=== PATIENT | male | born 1955 | race Caucasian/White ===

== ENCOUNTER 2016-12-30 08:05 | Outpatient (CLI) | payer BC | END 2016-12-30 08:06 | disposition home or self-care (01) | DX: Z85.46 Personal history of malignant neoplasm of prostate (principal); Z79.899 Other long term (current) drug therapy ==

== ENCOUNTER 2017-01-05 08:50 | Outpatient (CLI) | payer BC | END 2017-01-05 08:51 | disposition home or self-care (01) | DX: E29.1 Testicular hypofunction (principal) ==

== ENCOUNTER 2017-07-09 12:54 | Outpatient (CLI) | payer BC ==
[2017-07-09 19:23] LABS: FOLLICLE STIMULATING HORMONE 8.81 mIU/mL
[2017-07-09 19:24] LABS: LUTEINIZING HORMONE 7.56 mIU/mL
[2017-07-14 14:31] LABS: TEST RESULT REPORT
== END 2017-07-09 12:55 | disposition home or self-care (01) ==
LOC: LAB.F 12:54
PROVIDERS: ATTEND Internal Medicine
DX: C61 Malignant neoplasm of prostate (principal)
CPT/HCPCS: 36415; 81599; 83001; 83002; 84153; 84270; 84402; 84403

== ENCOUNTER 2018-01-26 11:23 | Outpatient (CLI) | payer BC ==
[2018-01-26 13:05] LABS: BASOPHILS % (AUTO) 0.8 %; EOSINOPHILS # (AUTO) 0.1 10^3/uL (0.0-0.7); EOSINOPHILS % (AUTO) 2.4 %; HGB - HEMOGLOBIN 14.9 g/dL (14.0-18.0); LYMPHOCYTES # (AUTO) 1.8 10^3/uL (1.5-3.5); LYMPHOCYTES % (AUTO) 34.6 %; MEAN CORPUSCULAR HEMOGLOBIN 32.8 pg (27.0-31.0); MEAN CORPUSCULAR HGB CONC 34.8 g/dL (32.0-36.0); MEAN CORPUSCULAR VOLUME 94.2 fL (80.0-94.0); MEAN PLATELET VOLUME 7.5 fL (7.4-11.4); MONOCYTES # (AUTO) 0.4 10^3/uL (0.0-1.0); MONOCYTES % (AUTO) 6.8 %; NEUTROPHILS # (AUTO) 2.9 10^3/uL (1.5-6.6); NEUTROPHILS % (AUTO) 55.4 %; PLT - PLATELET COUNT 215 10^3/uL (130-450); RED BLOOD COUNT 4.55 10^6/uL (4.70-6.10); RED CELL DISTRIBUTION WIDTH 12.5 % (12.0-15.0); WHITE BLOOD COUNT 5.3 x10^3/uL (4.8-10.8)
[2018-01-26 13:25] LABS: ALBUMIN 4.7 g/dL (3.2-5.5); ALBUMIN/GLOBULIN RATIO 1.9 (1.0-2.2); BILIRUBIN,TOTAL 0.8 mg/dL (0.2-1.0); CALCIUM 9.1 mg/dL (8.5-10.3); CREATININE 0.9 mg/dL (0.6-1.2); TOTAL PROTEIN 7.2 g/dL (6.7-8.2)
== END 2018-01-26 11:24 | disposition home or self-care (01) ==
LOC: LAB.R 11:23
PROVIDERS: ATTEND Internal Medicine
DX: C61 Malignant neoplasm of prostate (principal)
CPT/HCPCS: 80053; 84153; 84443; 85025

== ENCOUNTER 2018-02-11 08:00 | Outpatient (CLI) | payer BC | END 2018-02-11 08:01 | disposition home or self-care (01) | LOC: LAB.R 08:00 | PROVIDERS: ATTEND Internal Medicine | DX: C61 Malignant neoplasm of prostate (principal) | CPT/HCPCS: 81599; 84153; 84402; 84403 ==

== ENCOUNTER 2018-07-21 11:01 | Outpatient (CLI) | payer BC | END 2018-07-21 11:02 | disposition home or self-care (01) | LOC: LAB.F 11:01 | PROVIDERS: ATTEND Internal Medicine | DX: C61 Malignant neoplasm of prostate (principal) | CPT/HCPCS: 36415; 84153 ==

== ENCOUNTER 2018-08-31 09:33 | Outpatient (CLI) | payer MEDICARE, OTHER ==
[2018-08-31] MEDS ORDERED: IOVERSOL 320 100 ML VIAL IVP ONE (13:20)
[2018-08-31] MEDS ORDERED: IOVERSOL 320 50 ML VIAL PO ONE (13:20)
--- NOTE | 2018-09-01 08:21 | Nuclear Medicine Report ---
Reason: PROSTATE CA Procedure Date: 08/31/2018 Accession Number: [id number] / [id number] Procedure: NM - Bone Whole Body CPT Code: FULL RESULT: EXAM: BONE SCAN EXAM DATE: 08/31/2018 01:57 PM. CLINICAL HISTORY: PROSTATE CA. COMPARISON: ABDOMEN/PELVIS W08/31/2018 11:44 AM CHEST W08/31/2018 11:44 AM. TECHNIQUE: Following the intravenous administration of 31.6 mCi of technetium 99m MDP and an appropriate delay, a whole-body scan was performed in anterior and posterior projections. Site-specific spot views of the region of interest were obtained in various projections. FINDINGS: Normal renal radiotracer uptake and bladder activity. Normal soft tissue activity. Overall normal osseous uptake. Mild thoracolumbar scoliosis. Mild multilevel thoracic and mid to lower lumbar spinal uptake likely degenerative. Mild uptake at the acromial clavicular joints, bilateral knees and feet, likely degenerative. No suspicious focal uptake. IMPRESSION: 1. No convincing scintigraphic evidence of osseous metastasis. RADIA
--- NOTE | 2018-09-01 09:20 | CT Report ---
Reason: PROSTATE CANCER Procedure Date: 08/31/2018 Accession Number: [id number] / [id number] Procedure: CT - Abdomen/Pelvis W/ CPT Code: FULL RESULT: EXAM: CT CHEST, ABDOMEN AND PELVIS EXAM DATE: 08/31/2018 12:00 PM. CLINICAL HISTORY: Prostate cancer. COMPARISONS: CT pelvis 02/22/2014, CT abdomen and pelvis 09/15/2013. TECHNIQUE: Routine helical CT imaging was performed through the chest, abdomen, and pelvis. IV contrast: Isovue-320 90 mL. Enteric contrast: No. Reconstructions: Coronal and sagittal. In accordance with CT protocol optimization, one or more of the following dose reduction techniques were utilized for this exam: automated exposure control, adjustment of mA and/or KV based on patient size, or use of iterative reconstructive technique. FINDINGS: Lungs/Pleura: Normal. No nodules, bronchial thickening, consolidation, or edema. Pulmonary vasculature is normal. No effusions or pneumothorax. Mediastinum: Normal. No adenopathy or masses. Liver: Normal. Gallbladder/Bile Ducts: Unremarkable. Spleen: Normal. Pancreas: Normal. Adrenal Glands: Normal. Kidneys: Normal. No masses or hydronephrosis. Peritoneal Cavity/Bowel: Normal. No free fluid, free air or abdominal adenopathy. No masses or acute inflammatory process. The appendix is well visualized and normal. Pelvic Organs: Fiducial markers are seen in the prostate which exerts mass effect/nodularity of the bladder base that is suspicious. There is a suspicious left external iliac lymph node cluster which measures 3.2 x 1.9 cm (image 74 series 3), as well as a suspicious 1.3 x 1.1 cm node in the left internal iliac chain, image 79 series 3. These findings appear stable compared to 2013. Vasculature: No aneurysms or other significant abnormality. Bones: No aggressive osseous lesions are identified, recommend correlation to bone scan. Other: None. IMPRESSION: Stable disease with persistent pelvic lymphadenopathy and questionable bladder invasion by CT. RADIA
--- NOTE | 2018-09-01 09:20 | CT Report ---
Reason: PROSTATE CANCER Procedure Date: 08/31/2018 Accession Number: [id number] / [id number] Procedure: CT - Chest W/ CPT Code: FULL RESULT: EXAM: CT CHEST, ABDOMEN AND PELVIS EXAM DATE: 08/31/2018 12:00 PM. CLINICAL HISTORY: Prostate cancer. COMPARISONS: CT pelvis 02/22/2014, CT abdomen and pelvis 09/15/2013. TECHNIQUE: Routine helical CT imaging was performed through the chest, abdomen, and pelvis. IV contrast: Isovue-320 90 mL. Enteric contrast: No. Reconstructions: Coronal and sagittal. In accordance with CT protocol optimization, one or more of the following dose reduction techniques were utilized for this exam: automated exposure control, adjustment of mA and/or KV based on patient size, or use of iterative reconstructive technique. FINDINGS: Lungs/Pleura: Normal. No nodules, bronchial thickening, consolidation, or edema. Pulmonary vasculature is normal. No effusions or pneumothorax. Mediastinum: Normal. No adenopathy or masses. Liver: Normal. Gallbladder/Bile Ducts: Unremarkable. Spleen: Normal. Pancreas: Normal. Adrenal Glands: Normal. Kidneys: Normal. No masses or hydronephrosis. Peritoneal Cavity/Bowel: Normal. No free fluid, free air or abdominal adenopathy. No masses or acute inflammatory process. The appendix is well visualized and normal. Pelvic Organs: Fiducial markers are seen in the prostate which exerts mass effect/nodularity of the bladder base that is suspicious. There is a suspicious left external iliac lymph node cluster which measures 3.2 x 1.9 cm (image 74 series 3), as well as a suspicious 1.3 x 1.1 cm node in the left internal iliac chain, image 79 series 3. These findings appear stable compared to 2013. Vasculature: No aneurysms or other significant abnormality. Bones: No aggressive osseous lesions are identified, recommend correlation to bone scan. Other: None. IMPRESSION: Stable disease with persistent pelvic lymphadenopathy and questionable bladder invasion by CT. RADIA
== END 2018-08-31 09:34 | disposition home or self-care (01) ==
LOC: DI 09:33
PROVIDERS: ATTEND Internal Medicine Hematology & Oncology
DX: C61 Malignant neoplasm of prostate (principal); R59.0 Localized enlarged lymph nodes
CPT/HCPCS: 71260; 74177; 78306; Q9967

== ENCOUNTER 2018-08-31 10:21 | Outpatient (CLI) | payer MEDICARE, OTHER ==
[2018-08-31] MEDS ORDERED: IOVERSOL 320 50 ML VIAL ONE (10:25)
[2018-08-31] MEDS ORDERED: IOVERSOL 320 100 ML VIAL IVP ONE (10:25)
== END 2018-08-31 10:22 | disposition home or self-care (01) ==
LOC: DI 10:21
PROVIDERS: ATTEND Internal Medicine Hematology & Oncology
DX: Z53.9 Procedure and treatment not carried out, unspecified reason (principal)

== ENCOUNTER 2019-09-04 10:03 | Outpatient (CLI) | payer MEDICARE, OTHER | END 2019-09-04 10:04 | disposition home or self-care (01) | LOC: LAB.S 10:03 | PROVIDERS: ATTEND Physician Assistant Medical | DX: Z53.9 Procedure and treatment not carried out, unspecified reason (principal) ==

== ENCOUNTER 2021-08-01 14:13 | Outpatient (CLI) | payer MEDICARE, OTHER | END 2021-08-01 14:14 | disposition critical access hospital (66) | LOC: EMS 14:13 | DX: R55 Syncope and collapse (principal) | CPT/HCPCS: A0425; A0427 ==

== ENCOUNTER 2021-08-01 14:44 | Inpatient (IN) | payer MEDICARE, OTHER ==
[2021-08-01] MEDS ORDERED: SODIUM CHLORIDE 0.9% 1,000 ML IV STA (15:01)
[2021-08-01 15:04] LABS: BASOPHILS % (AUTO) 0.2 %; EOSINOPHILS % (AUTO) 0.2 %; HCT - HEMATOCRIT 39.3 % (42.0-52.0); HGB - HEMOGLOBIN 13.1 g/dL (14.0-18.0); LYMPHOCYTES # (AUTO) 0.9 10^3/uL (1.5-3.5); LYMPHOCYTES % (AUTO) 14.4 %; MEAN CORPUSCULAR HEMOGLOBIN 32.8 pg (27.0-31.0); MEAN CORPUSCULAR HGB CONC 33.3 g/dL (32.0-36.0); MEAN CORPUSCULAR VOLUME 98.3 fL (80.0-94.0); MEAN PLATELET VOLUME 8.9 fL (7.4-11.4); MONOCYTES # (AUTO) 0.3 10^3/uL (0.0-1.0); MONOCYTES % (AUTO) 3.9 %; NEUTROPHILS # (AUTO) 5.2 10^3/uL (1.5-6.6); NEUTROPHILS % (AUTO) 80.7 %; PLT - PLATELET COUNT 142 10^3/uL (130-450); RED CELL DISTRIBUTION WIDTH 12.4 % (12.0-15.0); WHITE BLOOD COUNT 6.4 x10^3/uL (4.8-10.8)
--- NOTE | 2021-08-01 15:06 | ED Physician Documentation ---
History of Present Illness - Stated complaint Stated Complaint: SYNCOPE/LETHARGIC - Chief complaint Chief Complaint: Neuro - Additonal information Additional information: 65-year-old male is brought to the emergency department for evaluation of a syncopal event. Patient is amnesic to the events and is unsure why he is here though he thinks he may have fainted. He reports that he lives at home with his . When asked how he feels he states that he does not feel well but is unable to describe what his symptoms are. He denies chest pain or shortness of air. Per the EMS run sheet the patient syncopized approximately 45 minutes prior to arrival. On scene they did note some mild nystagmus question genital whether or not he had some seizure activity. Patient does have a history of metastatic prostate cancer and has been followed by our Dr. Dailey with hematology oncology. Upon presentation to the emergency department patient is hypoxic on room air saturating 87%. This improves to 96% with 2 L nasal cannula. pt is noted to be febrile here on presentation. 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 - Present Medications Home Medications: Ambulatory Orders Medication Instructions Recorded Confirmed Cetirizine HCl [Zyrtec] 10 mg PO DAILY 01/15/14 06/03/21 Abiraterone Acetate [Zytiga] 1,000 tab PO DAILY 12/13/18 06/03/21 Butalb/Acetaminophen/Caffeine 1 each PO Q4HR PRN 12/13/18 06/03/21 [Deacad-Ulwsnwwi-Xzdg 50-325-40] Leuprolide Acetate [Lupron Depot] 22.5 mg IM Q3M 12/13/18 06/03/21 predniSONE [Prednisone] 5 mg PO BID 12/13/18 06/03/21 lisinopriL [Prinivil] 20 mg PO DAILY 03/12/20 06/03/21 - Allergies Allergies/Adverse Reactions: Allergies Allergy/AdvReac Type Severity Reaction Status Date / Time No Known Drug Allergies Allergy Verified 08/01/21 14:56 PD ED PE NORMAL - General General: No acute distress, Well developed/nourished - HEENT HEENT: Atraumatic, EOMI, Moist mucous membranes, Pharynx benign - Neck Neck: Supple, no meningeal sign, No adenopathy - Cardiac Cardiac: RRR, No murmur, No gallop - Respiratory Respiratory: No respiratory distress - Abdomen Abdomen: Normal bowel sounds, Soft, Non tender - Back Back: No CVA TTP, No spinal TTP - Derm Derm: Normal color, Warm and dry, No rash - Extremities Extremities: No deformity - Neuro Neuro: Alert and oriented X 3, 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, No motor deficit Eye Opening: Spontaneous Motor: Obeys Commands Verbal: Oriented GCS Score: 15 Results - Vitals Vitals: Vital Signs - 24 hr 08/01/21 08/01/21 08/01/21 14:51 15:29 16:09 Temperature 97.8 C H 38.8 C H Heart Rate 106 H 134 H 116 H Heart Rate [ 129 H Sitting] Heart Rate [ 134 H Standing] Heart Rate [ 113 H Supine] Respiratory 18 20 22 Rate Blood Pressure 115/70 130/94 H 127/86 H Blood Pressure 140/90 H [Sitting] Blood Pressure 130/94 H [Standing] Blood Pressure 131/75 H [Supine] O2 Saturation 94 92 94 08/01/21 08/01/21 08/01/21 16:50 17:02 17:41 Temperature 37.9 C 37.9 C 38.1 C H Heart Rate 105 H 105 H 106 H Heart Rate [ Sitting] Heart Rate [ Standing] Heart Rate [ Supine] Respiratory 21 21 19 Rate Blood Pressure 113/66 113/66 94/57 L Blood Pressure [Sitting] Blood Pressure [Standing] Blood Pressure [Supine] O2 Saturation 96 96 95 08/01/21 18:33 Temperature 37.9 C Heart Rate 99 Heart Rate [ Sitting] Heart Rate [ Standing] Heart Rate [ Supine] Respiratory 15 Rate Blood Pressure 94/54 L Blood Pressure [Sitting] Blood Pressure [Standing] Blood Pressure [Supine] O2 Saturation 96 Oxygen O2 Source Nasal cannula - EKG (time done) 1509 Rate: Rate (enter#) (106) Rhythm: Sinus tachycardia [place]: Normal Intervals: Normal MO QRS: Normal Ischemia: Non specific changes Compare to prior EKG: Old EKG unavailable Computer interpretation: Agree with computer 1827 Rate: Rate (enter#) (100) Rhythm: NSR [place]: Normal Intervals: Normal MO QRS: Normal Ischemia: Non specific changes Compare to prior EKG: Unchanged from prior EKG Computer interpretation: Agree with computer - Labs Labs: Laboratory Tests 08/01/21 08/01/21 08/01/21 14:59 14:59 14:59 WBC 6.4 RBC 4.00 L Hgb 13.1 L Hct 39.3 L MCV 98.3 H MCH 32.8 H MCHC 33.3 RDW 12.4 Plt Count 142 MPV 8.9 Neut # (Auto) 5.2 Lymph # (Auto) 0.9 L [place] # (Auto) 0.3 Eos # (Auto) 0.0 Baso # (Auto) 0.0 Absolute Nucleated RBC 0.00 Nucleated RBC % 0.0 Sodium 137 Potassium 3.5 Chloride 102 Carbon Dioxide 25 Anion Gap 10.0 BUN 25 H Creatinine 1.1 Estimated GFR (MDRD) 67 L Glucose 110 H Lactic Acid Calcium 8.8 Total Bilirubin 1.5 H AST 20 ALT 19 Alkaline Phosphatase 81 Troponin I High Sens 8.0 B-Natriuretic Peptide Total Protein 6.5 L Albumin 3.7 Globulin 2.8 Albumin/Globulin Ratio 1.3 Lipase 20 L Urine Color Urine Clarity Urine pH Ur Specific [place] Urine Protein Urine Glucose (UA) Urine Ketones Urine Occult Blood Urine Nitrite Urine Bilirubin Urine Urobilinogen Ur Leukocyte Esterase Urine RBC Urine WBC Ur Squamous Epith Cells Urine Bacteria Urine Yeast Ur Microscopic Review Urine Culture Comments Nasal Adenovirus (PCR) Nasal B. parapertussis DNA (PCR) Nasal Coronavir 229E PCR Nasal Coronavir HKU1 PCR Nasal Coronavir NL63 PCR Nasal Coronavir OC43 PCR Nasal Enterovir/Rhinovir PCR Nasal Influenza B PCR Nasal Influenza A PCR Nasal Parainfluen 1 PCR Nasal Parainfluen 2 PCR Nasal Parainfluen 3 PCR Nasal Parainfluen 4 PCR Nasal RSV (PCR) Nasal B.pertussis DNA PCR Nasal C.pneumoniae (PCR) Chi Human Metapneumo PCR Nasal M.pneumoniae (PCR) Nasal SARS-CoV-2 (PCR) 08/01/21 08/01/21 08/01/21 14:59 15:30 15:36 WBC RBC Hgb Hct MCV MCH MCHC RDW Plt Count MPV Neut # (Auto) Lymph # (Auto) [place] # (Auto) Eos # (Auto) Baso # (Auto) Absolute Nucleated RBC Nucleated RBC % Sodium Potassium Chloride Carbon Dioxide Anion Gap BUN Creatinine Estimated GFR (MDRD) Glucose Lactic Acid 3.6 H* Calcium Total Bilirubin AST ALT Alkaline Phosphatase Troponin I High Sens B-Natriuretic Peptide 117 H Total Protein Albumin Globulin Albumin/Globulin Ratio Lipase Urine Color Urine Clarity Urine pH Ur Specific [place] Urine Protein Urine Glucose (UA) Urine Ketones Urine Occult Blood Urine Nitrite Urine Bilirubin Urine Urobilinogen Ur Leukocyte Esterase Urine RBC Urine WBC Ur Squamous Epith Cells Urine Bacteria Urine Yeast Ur Microscopic Review Urine Culture Comments Nasal Adenovirus (PCR) NOT DETECTED Nasal B. parapertussis DNA (PCR) NOT DETECTED Nasal Coronavir 229E PCR NOT DETECTED Nasal Coronavir HKU1 PCR NOT DETECTED Nasal Coronavir NL63 PCR NOT DETECTED Nasal Coronavir OC43 PCR NOT DETECTED Nasal Enterovir/Rhinovir PCR NOT DETECTED Nasal Influenza B PCR NOT DETECTED Nasal Influenza A PCR NOT DETECTED Nasal Parainfluen 1 PCR NOT DETECTED Nasal Parainfluen 2 PCR NOT DETECTED Nasal Parainfluen 3 PCR NOT DETECTED Nasal Parainfluen 4 PCR NOT DETECTED Nasal RSV (PCR) NOT DETECTED Nasal B.pertussis DNA PCR NOT DETECTED Nasal C.pneumoniae (PCR) NOT DETECTED Chi Human Metapneumo PCR NOT DETECTED Nasal M.pneumoniae (PCR) NOT DETECTED Nasal SARS-CoV-2 (PCR) NOT DETECTED 08/01/21 08/01/21 16:32 18:22 WBC RBC Hgb Hct MCV MCH MCHC RDW Plt Count MPV Neut # (Auto) Lymph # (Auto) [place] # (Auto) Eos # (Auto) Baso # (Auto) Absolute Nucleated RBC Nucleated RBC % Sodium Potassium Chloride Carbon Dioxide Anion Gap BUN Creatinine Estimated GFR (MDRD) Glucose Lactic Acid 1.1 Calcium Total Bilirubin AST ALT Alkaline Phosphatase Troponin I High Sens B-Natriuretic Peptide Total Protein Albumin Globulin Albumin/Globulin Ratio Lipase Urine Color DARK YELLOW Urine Clarity HAZY Urine pH 6.0 Ur Specific [place] 1.015 Urine Protein TRACE Urine Glucose (UA) NEGATIVE Urine Ketones NEGATIVE Urine Occult Blood LARGE H Urine Nitrite NEGATIVE Urine Bilirubin NEGATIVE Urine Urobilinogen 0.2 (NORMAL) Ur Leukocyte Esterase NEGATIVE Urine RBC TNTC H Urine WBC 4-5 Ur Squamous Epith Cells RARE Squamous Urine Bacteria Few Urine Yeast PRESENT Ur Microscopic Review INDICATED Urine Culture Comments NOT INDICATED Nasal Adenovirus (PCR) Nasal B. parapertussis DNA (PCR) Nasal Coronavir 229E PCR Nasal Coronavir HKU1 PCR Nasal Coronavir NL63 PCR Nasal Coronavir OC43 PCR Nasal Enterovir/Rhinovir PCR Nasal Influenza B PCR Nasal Influenza A PCR Nasal Parainfluen 1 PCR Nasal Parainfluen 2 PCR Nasal Parainfluen 3 PCR Nasal Parainfluen 4 PCR Nasal RSV (PCR) Nasal B.pertussis DNA PCR Nasal C.pneumoniae (PCR) Chi Human Metapneumo PCR Nasal M.pneumoniae (PCR) Nasal SARS-CoV-2 (PCR) - Rads (name of study) CT abd pelvis Radiology: Final report received (No acute inflammatory processes seen in abdomen or pelvis. No bowel obstruction. No abnormal bowel wall thickening. No evidence of metastatic disease.) CT head Radiology: Final report received CT pulmonary angio Radiology: Final report received (No central pulmonary embolism. Segmental bra nches are inadequately opacified for more definitive evaluation.) PD MEDICAL DECISION MAKING - ED course Complexity details: reviewed results, re-evaluated patient, considered differential, d/w patient ED course: 65-year-old male who has a history of metastatic prostate cancer presents to the emergency department after an unwitnessed syncopal episode. EMS on scene described that he had nystagmus. Patient is amnesic to the events but presents with no focal neuro deficits. However on presentation to the ER he is noted to be febrile with a temperature of 101.9. Screening labs today show no leukocytosis. Urine is not consistent with infection but there is hematuria. This is most consistent with his history of prostate cancer. He was noted to have an elevated lactate of 3.6. Given the fever and elevated lactate he was given 30 mils per kilogram of normal saline fluid infusion. Initially his blood pressures were normotensive 130s over 60s but during the course of the ER visit he did develop some soft blood pressures in the 90s over 60s. Given the unwitnessed syncope and amnesia to the event CT of the head was completed that showed no acute focal findings. He did present is mildly hypoxic on room air with saturations of 87 to 88% requiring 2 L nasal cannula. A CT of the chest did not show any acute focal opacities and there was no large central pulmonary embolus seen. Given the history of cancer a CT of the abdomen was also completed that showed no acute findings. This patient was empirically given vancomycin and cefepime here in the emergency department and I have discussed the case with Dr. Nichole hospitalist on-call who graciously agrees to admit the patient for further evaluation of his sepsis with due to an unknown source. - Sepsis Event Sepsis Onset Date: 08/01/21 Sepsis Onset Time: 17:00 Current Stage of Sepsis: Sepsis Initial Hypotension: Not hypotensive Possible source of Sepsis: Unknown Mental/Cognitive Status: Alert/Oriented X3 Capillary refill: Less than 2 seconds Peripheral Pulse Strength: 2+ Slightly Diminished Peripheral Pulse Location: Pedal Bedside ultrasound performed: Yes Departure - Departure Disposition: 66 [facility] DC/Xfer Clinical Impression: Hypoxia Sepsis Qualifiers: Sepsis type: sepsis due to unspecified organism Sepsis acute organ dysfunction status: without acute organ dysfunction Qualified Code(s): A41.9 - Sepsis, unspecified organism Syncope Qualifiers: Syncope type: unspecified Qualified Code(s): R55 - Syncope and collapse
--- NOTE | 2021-08-01 15:22 | XRAY Report ---
PROCEDURE: Chest 1 View X-Ray INDICATIONS: Chest Pain TECHNIQUE: One view of the chest was acquired. COMPARISON: CT chest 08/31/2018 report, images are currently not available for comparison. FINDINGS: Surgical changes and devices: None. Lungs and pleura: No pleural effusions or pneumothorax. Mild increased pulmonary vascularity. Mediastinum: Mediastinal contours appear normal. Heart size is normal. Bones and chest wall: No suspicious bony lesions. Overlying soft tissues appear unremarkable. IMPRESSION: Mild increased vascularity suggestive of edema. Reviewed by: Elysia Sweeney MD on 08/01/2021 3:21 PM PDT Approved by: Elysia Sweeney MD on 08/01/2021 3:21 PM PDT Station ID: [id number]
[2021-08-01] MEDS ORDERED: SODIUM CHLORIDE 0.9% 2,585.49 ML IV STA (15:28)
[2021-08-01] MEDS ORDERED: IOVERSOL 320 100 ML VIAL IVP ONE ×2 (15:33→16:57)
[2021-08-01 15:38] LABS: ALBUMIN 3.7 g/dL (3.2-5.5); ALBUMIN/GLOBULIN RATIO 1.3 (1.0-2.2); BILIRUBIN,TOTAL 1.5 mg/dL (0.2-1.0); CALCIUM 8.8 mg/dL (8.5-10.3); CREATININE 1.1 mg/dL (0.6-1.2); POTASSIUM 3.5 mmol/L (3.5-5.0); TOTAL PROTEIN 6.5 g/dL (6.7-8.2)
[2021-08-01] MEDS ORDERED: ACETAMINOPHEN 325 MG TABLET PO STA (16:00)
[2021-08-01 16:05] LABS: LACTIC ACID, VENOUS 3.6 mmol/L (0.5-2.2)
[2021-08-01 16:41] LABS: BILIRUBIN,URINE NEGATIVE (NEGATIVE); GLUCOSE, URINE (UA) NEGATIVE (NEGATIVE); KETONES,URINE (UA) NEGATIVE (NEGATIVE); LEUKOCYTE ESTERASE, URINE NEGATIVE (NEGATIVE); NITRITE,URINE NEGATIVE (NEGATIVE); OCCULT BLOOD,URINE LARGE (NEGATIVE); PROTEIN,URINE TRACE mg/dL (NEGATIVE); UROBILINOGEN,URINE 0.2 (NORMAL) E.U./dL (NORMAL)
[2021-08-01 16:42] LABS: CLARITY,URINE HAZY (CLEAR)
--- NOTE | 2021-08-01 16:51 | CT Report ---
PROCEDURE: HEAD WO INDICATIONS: syncope TECHNIQUE: Noncontrast 4.5 mm thick angled axial sections acquired from the foramen magnum to the vertex. For r adiation dose reduction, the following was used: automated exposure control, adjustment of mA and/or kV according to patient size. COMPARISON: None. FINDINGS: Image quality: Excellent. CSF spaces: Basal cisterns are patent. No extra-axial fluid collections. Ventricles are normal in size and shape. Brain: No midline shift. No intracranial masses or hemorrhage. Perdomo-white matter interface is norm al. Skull and face: Calvarium and visualized facial bones are intact, without suspicious lesions. Sinuses: Visualized sinuses and mastoids are clear. IMPRESSION: 1. No acute intracranial process. Reviewed by: Elysia Sweeney MD on 08/01/2021 4:50 PM PDT Approved by: Elysia Sweeney MD on 08/01/2021 4:50 PM PDT Station ID: [id number]
--- NOTE | 2021-08-01 16:55 | CT Report ---
PROCEDURE: ANGIO CHEST W/WO INDICATIONS: syncope/hypoxia CONTRAST: IV CONTRAST: Optiray 320 ml: 100 PO CONTRAST: *NO PO CONTRAST TECHNIQUE: After the administration of intravenous contrast, 2 mm axial images were acquired from the pulmonary apices to the posterior costophrenic angles during the arterial phase. In addition, 1 mm lung kernel and 5 mm soft tissue kernel reconstructions were performed. 3-dimensional coronal oblique maximum int ensity projection (MIP) reformats, 8 mm axial MIP, and 5 mm coronal and sagittal MPR reformats were t hen performed through the thorax. For radiation dose reduction, the following was used: automated exp osure control, adjustment of mA and/or kV according to patient size. COMPARISON: CT chest report 08/31/2018, images are not available for direct comparison. FINDINGS: Image quality: Contrast opacification of segmental branches is suboptimal for definitive evaluation o f potential intraluminal emboli. Pulmonary arteries: Pulmonary arteries are normal in size, and demonstrate no intraluminal filling d efects to suggest central pulmonary embolism. Lungs and pleura: Lungs are clear. No pleural effusions or pneumothorax. Central and peripheral ai rways are patent. Mediastinum: Heart size is enlarged, without pericardial effusion. No mediastinal or hilar adenopat hy. Thoracic aorta is normal in caliber and enhancement. Esophagus is normal in caliber, without hi atal hernia. Bovine arch is incidentally noted. Bones and chest wall: No suspicious bony lesions. Ribs and thoracic spine appear intact throughout. No axillary or supraclavicular adenopathy. The thyroid is normal in size and there are no incident al findings. Abdomen: Visualized upper abdominal solid organs appear normal in the early arterial phase of enhanc ement. IMPRESSION: No central pulmonary embolism. Segmental branches are inadequately opacified for more definitive eval uation. No consolidations or effusions. CLINICAL RECOMMENDATION STATEMENTS: In patients <35 years with an ITN detected on CT, MRI, or extrathyroidal ultrasound, the Committee re commends further evaluation with dedicated thyroid ultrasound if the nodule is "e1 cm and has no susp icious imaging features, and if the patient has normal life expectancy. In patients "e35 years with an ITN detected on CT, MRI, or extrathyroidal ultrasound, the Committee r ecommends further evaluation with dedicated thyroid ultrasound if the nodule is "e1.5 cm and has no s uspicious imaging features, and if the patient has normal life expectancy. (ACR, 2014) Reviewed by: Elysia Sweeney MD on 08/01/2021 4:54 PM PDT Approved by: Elysia Sweeney MD on 08/01/2021 4:54 PM PDT Station ID: [id number]
[2021-08-01 17:02] LABS: B. PARAPERTUSSIS- RESP PCR PAN NOT DETECTED; B. PERTUSSIS- RESP PCR PANEL NOT DETECTED; C. PNEUMONIAE- RESP PCR PANEL NOT DETECTED; CORONAVIRUS 229E-RESP PCR NOT DETECTED; CORONAVIRUS HKU1-RESP PCR NOT DETECTED; CORONAVIRUS NL63-RESP PCR NOT DETECTED; CORONAVIRUS OC43-RESP PCR NOT DETECTED; HUMAN METAPNEUMOVIRUS NOT DETECTED; INFLUENZA A- RESP PCR PANEL NOT DETECTED; INFLUENZA B - RESP PCR PANEL NOT DETECTED; M. PNEUMONIAE- RESP PCR PANEL NOT DETECTED; PARAINFLUENZA VIRUS 1 NOT DETECTED; PARAINFLUENZA VIRUS 2 NOT DETECTED; PARAINFLUENZA VIRUS 3 NOT DETECTED; PARAINFLUENZA VIRUS 4 NOT DETECTED; RHINOVIRUS/ENTEROVIRUS NOT DETECTED; RSV- RESP PCR PANEL NOT DETECTED; SARS-CoV-2 -RESP PCR PANEL NOT DETECTED
--- NOTE | 2021-08-01 17:03 | CT Report ---
PROCEDURE: Abdomen/Pelvis W INDICATIONS: history of prostate ca/ syncope CONTRAST: IV CONTRAST: Optiray 320 ml: 100 PO CONTRAST: *NO PO CONTRAST TECHNIQUE: After the administration of IV contrast, 5 mm thick sections acquired from the diaphragms to the symp hysis. 5 mm thick coronal and sagittal reformats were acquired. For radiation dose reduction, the f ollowing was used: automated exposure control, adjustment of mA and/or kV according to patient size. COMPARISON: CT of abdomen and pelvis dated 09/05/2020, 06/06/2019 and 08/31/2018. FINDINGS: Image quality: Excellent. ABDOMEN: Lung bases: Bibasilar scarring/atelectasis are seen posteriorly. No pleural effusion or pneumothorax. Heart size is mildly enlarged, no pericardial effusion. Solid organs: Liver and spleen are normal in size and enhancement. Gallbladder is surgically absent Biliary system is non dilated. Pancreas enhances normally. No adrenal nodules. Kidneys demonstra te normal size and enhancement, without hydronephrosis. Nonobstructing stone in lower pole of right kidney is again seen unchanged from prior study. Peritoneum and bowel: Bowel loops demonstrate normal wall thickness and caliber. No free fluid or a ir. A surgical clip is noted in left lower quadrant mesentery. Nodes and vessels: No retroperitoneal or mesenteric adenopathy by size criteria. Aorta and inferior vena cava are normal in size. Miscellaneous: No ventral hernias. PELVIS: Genitourinary: Bladder wall thickness is normal. Brachytherapy seeds are noted in the region of pro state gland. Miscellaneous: No inguinal hernias or adenopathy. Bones: No suspicious bony lesions. No vertebral body compression fractures. IMPRESSION: 1. No acute inflammatory process is seen in abdomen or pelvis. No bowel obstruction. No abnormal diana l wall thickening. No free fluid of free air. 2. No evidence of metastatic disease or recurrent disease seen in abdomen or pelvis. Reviewed by: Gulshan Ontiveros MD on 08/01/2021 5:02 PM PDT Approved by: Gulshan Ontiveros MD on 08/01/2021 5:02 PM PDT Station ID: [id number]
[2021-08-01 17:22] LABS: BACTERIA,URINE Few /HPF (None Seen); RBC,URINE TNTC /HPF (0-5); SQUAMOUS EPITHELIAL CELL,UR RARE Squamous (<= Few); YEAST,URINE PRESENT
[2021-08-01] MEDS ORDERED: CEFEPIME 1 GM in SODIUM CHLORIDE 0.9% MINIBAG 100 ML IV STA (18:03)
[2021-08-01] MEDS ORDERED: SODIUM CHLORIDE FLUSH 0.9% 10 ML SYRINGE IVP PRN (18:11)
[2021-08-01] MEDS ORDERED: ONDANSETRON 4 MG/2 ML VIAL IVP PRN (18:11)
[2021-08-01] MEDS ORDERED: VANCOMYCIN INJ 1 GM in SODIUM CHLORIDE 0.9% 250 ML IV SCH ×2 (19:00→21:00)
--- NOTE | 2021-08-01 19:27 | HISTORY & PHYSICAL EXAMINATION ---
Chief Complaint - Chief Complaint Chief Complaint: syncope, rigor, fever, tachycardia History of Present Illness - Admitted From Admitted From:: [facility] ED - History Obtained From Records Reviewed: yes History obtained from: patient - History of Present Illness HPI Comment/Other: Patient is a 65-year-old male with medical history significant for metastatic prostate cancer who sees Dr Dailey [place] [facility], hypertension and anemia who presented to the ED after a syncopal episode. He states that he has not been feeling well for the past couple of days. He has been sleeping a lot these past couple days as well. It has been difficult getting to the bathroom. He reported dizziness, chills and shaking uncontrollably (?rigors). H Today it appears the patient had a syncopal episode but had no recollection of it. In the ED he had an oxygen saturation of 87% on room air and was tachycardic with heart rate in the 110's, febrile with a temperature of 38.1 C and had a lactic acid of 3.6. He was presented for admission for further treatment. At bedside he denies chest pain but reports mild dyspnea. He also denies abdominal pain or vomiting. He was nauseous to previously but this seems to have resolved. There is no rash or redness on his body. 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 He does not consume tobacco products or alcohol. He does not use any recreational substances. He is normally independent of activities of daily living. 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 At home they currently have 3 pygmy goats and alpacas - POLST Patient has POLST: No POLST Status: DNR Meds/Allgy - Home Medications Home Medications: Ambulatory Orders Medication Instructions Recorded Confirmed Cetirizine HCl [Zyrtec] 10 mg PO DAILY 01/15/14 06/03/21 Abiraterone Acetate [Zytiga] 1,000 tab PO DAILY 12/13/18 06/03/21 Butalb/Acetaminophen/Caffeine 1 each PO Q4HR PRN 12/13/18 06/03/21 [Zmqzap-Fdnaaxcu-Itwc 50-325-40] Leuprolide Acetate [Lupron Depot] 22.5 mg IM Q3M 12/13/18 06/03/21 predniSONE [Prednisone] 5 mg PO BID 12/13/18 06/03/21 lisinopriL [Prinivil] 20 mg PO DAILY 03/12/20 06/03/21 - Allergies Allergies/Adverse Reactions: Allergies Allergy/AdvReac Type Severity Reaction Status Date / Time No Known Drug Allergies Allergy Verified 08/01/21 14:56 Review of Systems - Constitutional Constitutional: reports: Fatigue, Fever, Chills, Weakness - Eyes Eyes: denies: Pain, Dipolpia - Ears, Nose & Throat Ears, Nose & Throat: denies: Ear pain - Cardiovascular Cariovascular: reports: Lightheadedness, Syncope. denies: Chest pain, Edema - Respiratory Respiratory: denies: Cough, Sputum production, Wheezing, SOB at rest, SOB with exertion - Gastrointestinal Gastrointestinal: reports: Nausea. denies: Abdominal pain, Abdominal distention, Constipation, Vomiting - Genitourinary Genitourinary: denies: Dysuria, Frequency, Urgency, Hematuria - Musculoskeletal Musculoskeletal: denies: Muscle pain, Back pain, Muscle aches - Integumentary Integumentary: denies: Rash, Pruritis, Lesions, Dryness - Neurological Neurological: denies: General weakness, Focal weakness, Headache, Dizziness - Psychiatric Psychiatric: denies: Depression, Anxiety - Endocrine Endocrine: denies: Polyuria, Polydypsia - Hematologic/Lymphatic Hematologic/Lymphatic: reports: Anemia. denies: Bruising, Petechiae Prior Level of Functionality: He is normally independent of activities of daily living. 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 At home they currently have 3 pygmy goats and alpacas Exam - Vital Signs Vital Signs: Vital Signs x48h Temp Pulse Pulse Pulse Pulse Resp BP 08/01/21 18:33 37.9 C 99 15 94/54 L 08/01/21 17:41 38.1 C H 106 H 19 94/57 L 08/01/21 17:02 37.9 C 105 H 21 113/66 08/01/21 16:50 37.9 C 105 H 21 113/66 08/01/21 16:09 116 H 22 127/86 H 08/01/21 15:29 38.8 C H 134 H 129 H 134 H 113 H 20 130/94 H 08/01/21 14:51 97.8 C H 106 H 18 115/70 BP BP BP Pulse Ox 08/01/21 18:33 96 08/01/21 17:41 95 08/01/21 17:02 96 08/01/21 16:50 96 08/01/21 16:09 94 08/01/21 15:29 140/90 H 130/94 H 131/75 H 92 08/01/21 14:51 94 - Physical Exam General Appearance: positive: Alert, Mild distress Eyes Bilateral: positive: PERRL, EOMI ENT: positive: Dry mucous membranes Neck: positive: No JVD, Trachea midline Respiratory: positive: Chest non-tender, No respiratory distress, Breath sounds nml. negative: Wheezes, Rales, Rhonchi Cardiovascular: positive: No murmur, Tachycardia Abdomen: negative: Non-tender, No organomegaly, Nml bowel sounds, No distention, Guarding, Rebound Back: positive: Nml inspection Skin: positive: Color nml, No rash, Warm, Dry Extremities: positive: Non-tender, Full ROM, Nml appearance, No pedal edema Neurologic/Psychiatric: positive: Oriented x3, Mood/affect nml Sepsis Event Note (H) - Evaluation Possible source of Sepsis: positive: Unknown - Sepsis Criteria Sepsis Criteria: Metabolic: lactate > 2 mmol/L Conclusion/Plan - Problem List (1) Sepsis Conclusion/Plan: Etiology undetermined. Patient had a lactic acid of 3.6 upon presentation and a temperature of 38.1 C. Systolic blood pressure currently in the 90s. Patient was given 2.5 L of normal saline in the emergency department. Another liter bolus of normal saline ordered after which fluids will be continued with lactated Ringer at 100 mL/h. Patient is on vancomycin and cefepime. Blood cultures are pending. Lactic acid trended from 3.6 to 1.1 Qualifiers: Sepsis type: sepsis due to unspecified organism Sepsis acute organ dysfunction status: without acute organ dysfunction Qualified Code(s): A41.9 - Sepsis, unspecified organism (2) Metastatic malignant neoplasm to prostate Conclusion/Plan: Patient sees Dr Carrie Dailey at the [facility]. He is on Zytiga 100 mg daily, prednisone 5 mg twice daily and leuprolide 22.5 mg injection every 3 months (3) Syncope Conclusion/Plan: Likely secondary to hypotension related to septic state. Patient is currently receiving IV hydration and antibiotics. Qualifiers: Syncope type: unspecified Qualified Code(s): R55 - Syncope and collapse (4) Hypoxia Conclusion/Plan: Etiology undetermined. CT angio of the chest was negative for PE, consolidation or effusions. Patient is on 2 L of oxygen via nasal cannula with oxygen saturation at 99%. We will continue to monitor. - Lab Results Fish Bones: 08/01/21 14:59 08/01/21 14:59 Core Measures - Anticipated LOS I expect patient to be DC'd or transferred within 96 hours.: Yes - DVT/VTE - Prophylaxis VTE/DVT Device ordered at admit?: Yes VTE/DVT Prophylaxis med ordered at admit?: Yes
[2021-08-01] MEDS ORDERED: SODIUM CHLORIDE 0.9% 1,000 ML IV ONE (20:29)
[2021-08-01] MEDS: ACETAMINOPHEN 325 MG TABLET PO PRN (21:16)
[2021-08-02] MEDS: LACTATED RINGERS 1,000 ML IV SCH ×2 (01:08→11:25)
[2021-08-02] MEDS: SODIUM CHLORIDE FLUSH 0.9% 10 ML SYRINGE IVP SCH ×3 (01:16→16:04)
[2021-08-02 05:00] LABS: BASOPHILS % (AUTO) 0.4 %; EOSINOPHILS % (AUTO) 0.6 %; HCT - HEMATOCRIT 35.7 % (42.0-52.0); HGB - HEMOGLOBIN 11.7 g/dL (14.0-18.0); LYMPHOCYTES % (AUTO) 9.8 %; MEAN CORPUSCULAR HEMOGLOBIN 32.7 pg (27.0-31.0); MEAN CORPUSCULAR HGB CONC 32.8 g/dL (32.0-36.0); MEAN CORPUSCULAR VOLUME 99.7 fL (80.0-94.0); MEAN PLATELET VOLUME 8.9 fL (7.4-11.4); MONOCYTES % (AUTO) 3.6 %; NEUTROPHILS % (AUTO) 85.4 %; PLT - PLATELET COUNT 118 10^3/uL (130-450); RED BLOOD COUNT 3.58 10^6/uL (4.70-6.10); RED CELL DISTRIBUTION WIDTH 12.7 % (12.0-15.0); WHITE BLOOD COUNT 4.7 x10^3/uL (4.8-10.8)
[2021-08-02 05:08] LABS: CALCIUM 8.1 mg/dL (8.5-10.3); MAGNESIUM 1.8 mg/dL (1.7-2.8); POTASSIUM 3.7 mmol/L (3.5-5.0)
[2021-08-02 05:23] LABS: ABNORMAL LYMPHS % (MANUAL) 1 %; BAND NEUTROPHILS % (MANUAL) 7 %; DIFFERENTIAL COMMENT MANUAL DIFFERENTIAL; LYMPHOCYTES # (MANUAL) 0.3 10^3/uL (1.5-3.5); LYMPHOCYTES % (MANUAL) 6 %; NEUTROPHILS # (MANUAL) 4.4 10^3/uL (1.5-6.6); PLATELET ESTIMATE, MANUAL DECREASED (<130,000) (NORMAL); PLATELET MORPHOLOGY NORMAL APPEARANCE (NORMAL); RBC MORPHOLOGY (MULTIPLE) NORMAL APPEARANCE (NORMAL); WBC MORPHOLOGY (MULTIPLE) NORMAL APPEARANCE (NORMAL)
[2021-08-02] MEDS: CEFEPIME 2 GM in SODIUM CHLORIDE 0.9% MINIBAG 100 ML IV SCH ×2 (06:02→18:29)
[2021-08-02] MEDS: ACETAMINOPHEN 325 MG TABLET PO PRN ×2 (06:03→16:03)
--- NOTE | 2021-08-02 08:13 | PROVIDER PROGRESS NOTE ---
Subjective - Prog Note Date Prog Note Date: 08/02/21 - Subjective Subjective: He still feels pretty miserable overall. Complains of a headache and just fatigue. Denies any abdominal pain. Denies feeling short of breath. Current Medications - Current Medications Current Medications: Active Medications Acetaminophen (Acetaminophen 325 Mg Tablet) 650 mg PO Q4HR PRN PRN Reason: Pain 1 to 4 Last Admin: 08/02/21 06:03 Dose: 650 mg Documented by: Enoxaparin Sodium (Enoxaparin 40 Mg/0.4 Ml Syringe) 40 mg SUBQ DAILY [facility] Lactated Ringer's (Lr) 1,000 mls @ 100 mls/hr IV .Q10H [facility] Stop: 08/02/21 14:59 Last Admin: 08/02/21 01:08 Dose: 100 mls/hr Documented by: Cefepime HCl 2 gm/ Sodium (Chloride) 100 mls @ 200 mls/hr IV Q12H [facility] Last Infusion: 08/02/21 06:32 Dose: Infused Documented by: Ondansetron HCl (Ondansetron 4 Mg/2 Ml Vial) 4 mg IVP Q6HR PRN PRN Reason: Nausea / Vomiting Sodium Chloride (Sodium Chloride Flush 0.9% 10 Ml Syringe) 10 ml IVP PRN PRN PRN Reason: NEEDED PER PROVIDER ORDERS Sodium Chloride (Sodium Chloride Flush 0.9% 10 Ml Syringe) 10 ml IVP 0100,0900,1700 [facility] Last Admin: 08/02/21 01:16 Dose: 10 ml Documented by: Tramadol HCl (Tramadol 50 Mg Tablet) 50 mg PO Q4HR PRN PRN Reason: PAIN Cetirizine HCl [Zyrtec] 10 mg PO DAILY 01/15/14 Abiraterone Acetate [Zytiga] 1,000 tab PO DAILY 12/13/18 Butalb/Acetaminophen/Caffeine [Pvbxbb-Bjvouyjm-Qsuf 50-325-40] 1 each PO Q4HR PRN 12/13/18 Leuprolide Acetate [Lupron Depot] 22.5 mg IM Q3M 12/13/18 predniSONE [Prednisone] 5 mg PO BID 12/13/18 lisinopriL [Prinivil] 20 mg PO DAILY 03/12/20 Objective - Vital Signs/Intake & Output Reviewed Vital Signs: Yes Vital Signs: Vital Signs x48h Temp Pulse Resp BP Pulse Ox 08/02/21 05:06 36.5 C 95 16 108/56 L 97 08/02/21 01:00 36.7 C 89 17 110/49 L 94 Intake & Output: Intake & Output 07/30/21 07/31/21 08/01/21 08/02/21 23:59 23:59 23:59 23:59 Intake Total 5185.49 350 Output Total 400 600 Balance 4785.49 -250 - Objective General Appearance: positive: Alert, Lethargic Eyes Bilateral: positive: Normal inspection, Conjunctivae nml ENT: positive: ENT inspection nml Neck: positive: Nml inspection Respiratory: positive: No respiratory distress. negative: Wheezes, Rales Cardiovascular: positive: Regular rate & rhythm, No murmur. negative: Tachycardia Abdomen: positive: Non-tender, No distention. negative: Tenderness Skin: positive: Warm, Dry Extremities: positive: No pedal edema Neurologic/Psychiatric: negative: Disoriented to person, Disoriented to place - Lab Results Fish Bones: 08/02/21 04:44 08/02/21 04:50 Other Labs: Lab Results x24hrs 08/02/21 08/02/21 08/01/21 Range/Units 04:50 04:44 18:22 WBC 4.7 L (4.8-10.8) x10^3/uL RBC 3.58 L (4.70-6.10) 10^6/uL Hgb 11.7 L (14.0-18.0) g/dL Hct 35.7 L (42.0-52.0) % MCV 99.7 H (80.0-94.0) fL MCH 32.7 H (27.0-31.0) pg MCHC 32.8 (32.0-36.0) g/dL RDW 12.7 (12.0-15.0) % Plt Count 118 L (130-450) 10^3/uL MPV 8.9 (7.4-11.4) fL Neut # (Auto) Not Reportable (1.5-6.6) 10^3/uL Lymph # (Auto) Not Reportable (1.5-3.5) 10^3/uL Ransom # (Auto) Not Reportable (0.0-1.0) 10^3/uL Eos # (Auto) Not Reportable (0.0-0.7) 10^3/uL Baso # (Auto) Not Reportable (0.0-0.1) 10^3/uL Absolute Nucleated RBC Not Reportable x10^3/uL Total Counted 100 Band Neuts % (Manual) 7 (0 - 10) % Abnorm Lymph % (Manual) 1 % Nucleated RBC % Not Reportable /100WBC Neutrophils # (Manual) 4.4 (1.5-6.6) 10^3/uL Lymphocytes # (Manual) 0.3 L (1.5-3.5) 10^3/uL Monocytes # (Manual) 0.0 (0.0-1.0) 10^3/uL Eosinophils # (Manual) 0.0 (0-0.7) 10^3/uL Basophils # (Manual) 0.0 (0-0.1) 10^3/uL Differential Comment MANUAL DIFFERENTIAL WBC Morphology NORMAL APPEARANCE (NORMAL) Platelet Estimate DECREASED (<130,000) (NORMAL) Platelet Morphology NORMAL APPEARANCE (NORMAL) RBC Morph Micro Appear NORMAL APPEARANCE (NORMAL) Sodium 139 (135-145) mmol/L Potassium 3.7 (3.5-5.0) mmol/L Chloride 108 (101-111) mmol/L Carbon Dioxide 24 (21-32) mmol/L Anion Gap 7.0 (6-13) BUN 17 (6-20) mg/dL Creatinine 1.0 (0.6-1.2) mg/dL Estimated GFR (MDRD) 75 L (>89) Glucose 98 (70-100) mg/dL Lactic Acid 1.1 (0.5-2.2) mmol/L Calcium 8.1 L (8.5-10.3) mg/dL Magnesium 1.8 (1.7-2.8) mg/dL Total Bilirubin (0.2-1.0) mg/dL AST (10-42) IU/L ALT (10-60) IU/L Alkaline Phosphatase (42-121) IU/L Troponin I High Sens (2.3-19.7) ng/L B-Natriuretic Peptide (5-100) pg/mL Total Protein (6.7-8.2) g/dL Albumin (3.2-5.5) g/dL Globulin (2.1-4.2) g/dL Albumin/Globulin Ratio (1.0-2.2) Lipase (22-51) U/L Urine Color Urine Clarity (CLEAR) Urine pH (5.0-7.5) PH Ur Specific [place] (1.002-1.030) Urine Protein (NEGATIVE) mg/dL Urine Glucose (UA) (NEGATIVE) mg/dL Urine Ketones (NEGATIVE) mg/dL Urine Occult Blood (NEGATIVE) Urine Nitrite (NEGATIVE) Urine Bilirubin (NEGATIVE) Urine Urobilinogen (NORMAL) E.U./dL Ur Leukocyte Esterase (NEGATIVE) Urine RBC (0-5) /HPF Urine WBC (0-3) /HPF Ur Squamous Epith Cells (<= Few) Urine Bacteria (None Seen) /HPF Urine Yeast Ur Microscopic Review Urine Culture Comments Nasal Adenovirus (PCR) Nasal B. parapertussis DNA (PCR) Nasal Coronavir 229E PCR Nasal Coronavir HKU1 PCR Nasal Coronavir NL63 PCR Nasal Coronavir OC43 PCR Nasal Enterovir/Rhinovir PCR Nasal Influenza B PCR Nasal Influenza A PCR Nasal Parainfluen 1 PCR Nasal Parainfluen 2 PCR Nasal Parainfluen 3 PCR Nasal Parainfluen 4 PCR Nasal RSV (PCR) Nasal B.pertussis DNA PCR Nasal C.pneumoniae (PCR) Chi Human Metapneumo PCR Nasal M.pneumoniae (PCR) Nasal SARS-CoV-2 (PCR) 08/01/21 08/01/21 08/01/21 Range/Units 16:32 15:36 15:30 WBC (4.8-10.8) x10^3/uL RBC (4.70-6.10) 10^6/uL Hgb (14.0-18.0) g/dL Hct (42.0-52.0) % MCV (80.0-94.0) fL MCH (27.0-31.0) pg MCHC (32.0-36.0) g/dL RDW (12.0-15.0) % Plt Count (130-450) 10^3/uL MPV (7.4-11.4) fL Neut # (Auto) (1.5-6.6) 10^3/uL Lymph # (Auto) (1.5-3.5) 10^3/uL Ransom # (Auto) (0.0-1.0) 10^3/uL Eos # (Auto) (0.0-0.7) 10^3/uL Baso # (Auto) (0.0-0.1) 10^3/uL Absolute Nucleated RBC x10^3/uL Total Counted Band Neuts % (Manual) (0 - 10) % Abnorm Lymph % (Manual) % Nucleated RBC % /100WBC Neutrophils # (Manual) (1.5-6.6) 10^3/uL Lymphocytes # (Manual) (1.5-3.5) 10^3/uL Monocytes # (Manual) (0.0-1.0) 10^3/uL Eosinophils # (Manual) (0-0.7) 10^3/uL Basophils # (Manual) (0-0.1) 10^3/uL Differential Comment WBC Morphology (NORMAL) Platelet Estimate (NORMAL) Platelet Morphology (NORMAL) RBC Morph Micro Appear (NORMAL) Sodium (135-145) mmol/L Potassium (3.5-5.0) mmol/L Chloride (101-111) mmol/L Carbon Dioxide (21-32) mmol/L Anion Gap (6-13) BUN (6-20) mg/dL Creatinine (0.6-1.2) mg/dL Estimated GFR (MDRD) (>89) Glucose (70-100) mg/dL Lactic Acid 3.6 H* (0.5-2.2) mmol/L Calcium (8.5-10.3) mg/dL Magnesium (1.7-2.8) mg/dL Total Bilirubin (0.2-1.0) mg/dL AST (10-42) IU/L ALT (10-60) IU/L Alkaline Phosphatase (42-121) IU/L Troponin I High Sens (2.3-19.7) ng/L B-Natriuretic Peptide (5-100) pg/mL Total Protein (6.7-8.2) g/dL Albumin (3.2-5.5) g/dL Globulin (2.1-4.2) g/dL Albumin/Globulin Ratio (1.0-2.2) Lipase (22-51) U/L Urine Color DARK YELLOW Urine Clarity HAZY (CLEAR) Urine pH 6.0 (5.0-7.5) PH Ur Specific [place] 1.015 (1.002-1.030) Urine Protein TRACE (NEGATIVE) mg/dL Urine Glucose (UA) NEGATIVE (NEGATIVE) mg/dL Urine Ketones NEGATIVE (NEGATIVE) mg/dL Urine Occult Blood LARGE H (NEGATIVE) Urine Nitrite NEGATIVE (NEGATIVE) Urine Bilirubin NEGATIVE (NEGATIVE) Urine Urobilinogen 0.2 (NORMAL) (NORMAL) E.U./dL Ur Leukocyte Esterase NEGATIVE (NEGATIVE) Urine RBC TNTC H (0-5) /HPF Urine WBC 4-5 (0-3) /HPF Ur Squamous Epith Cells RARE Squamous (<= Few) Urine Bacteria Few (None Seen) /HPF Urine Yeast PRESENT Ur Microscopic Review INDICATED Urine Culture Comments NOT INDICATED Nasal Adenovirus (PCR) NOT DETECTED Nasal B. parapertussis DNA (PCR) NOT DETECTED Nasal Coronavir 229E PCR NOT DETECTED Nasal Coronavir HKU1 PCR NOT DETECTED Nasal Coronavir NL63 PCR NOT DETECTED Nasal Coronavir OC43 PCR NOT DETECTED Nasal Enterovir/Rhinovir PCR NOT DETECTED Nasal Influenza B PCR NOT DETECTED Nasal Influenza A PCR NOT DETECTED Nasal Parainfluen 1 PCR NOT DETECTED Nasal Parainfluen 2 PCR NOT DETECTED Nasal Parainfluen 3 PCR NOT DETECTED Nasal Parainfluen 4 PCR NOT DETECTED Nasal RSV (PCR) NOT DETECTED Nasal B.pertussis DNA PCR NOT DETECTED Nasal C.pneumoniae (PCR) NOT DETECTED Chi Human Metapneumo PCR NOT DETECTED Nasal M.pneumoniae (PCR) NOT DETECTED Nasal SARS-CoV-2 (PCR) NOT DETECTED 08/01/21 08/01/21 08/01/21 Range/Units 14:59 14:59 14:59 WBC (4.8-10.8) x10^3/uL RBC (4.70-6.10) 10^6/uL Hgb (14.0-18.0) g/dL Hct (42.0-52.0) % MCV (80.0-94.0) fL MCH (27.0-31.0) pg MCHC (32.0-36.0) g/dL RDW (12.0-15.0) % Plt Count (130-450) 10^3/uL MPV (7.4-11.4) fL Neut # (Auto) (1.5-6.6) 10^3/uL Lymph # (Auto) (1.5-3.5) 10^3/uL Ransom # (Auto) (0.0-1.0) 10^3/uL Eos # (Auto) (0.0-0.7) 10^3/uL Baso # (Auto) (0.0-0.1) 10^3/uL Absolute Nucleated RBC x10^3/uL Total Counted Band Neuts % (Manual) (0 - 10) % Abnorm Lymph % (Manual) % Nucleated RBC % /100WBC Neutrophils # (Manual) (1.5-6.6) 10^3/uL Lymphocytes # (Manual) (1.5-3.5) 10^3/uL Monocytes # (Manual) (0.0-1.0) 10^3/uL Eosinophils # (Manual) (0-0.7) 10^3/uL Basophils # (Manual) (0-0.1) 10^3/uL Differential Comment WBC Morphology (NORMAL) Platelet Estimate (NORMAL) Platelet Morphology (NORMAL) RBC Morph Micro Appear (NORMAL) Sodium 137 (135-145) mmol/L Potassium 3.5 (3.5-5.0) mmol/L Chloride 102 (101-111) mmol/L Carbon Dioxide 25 (21-32) mmol/L Anion Gap 10.0 (6-13) BUN 25 H (6-20) mg/dL Creatinine 1.1 (0.6-1.2) mg/dL Estimated GFR (MDRD) 67 L (>89) Glucose 110 H (70-100) mg/dL Lactic Acid (0.5-2.2) mmol/L Calcium 8.8 (8.5-10.3) mg/dL Magnesium (1.7-2.8) mg/dL Total Bilirubin 1.5 H (0.2-1.0) mg/dL AST 20 (10-42) IU/L ALT 19 (10-60) IU/L Alkaline Phosphatase 81 (42-121) IU/L Troponin I High Sens 8.0 (2.3-19.7) ng/L B-Natriuretic Peptide 117 H (5-100) pg/mL Total Protein 6.5 L (6.7-8.2) g/dL Albumin 3.7 (3.2-5.5) g/dL Globulin 2.8 (2.1-4.2) g/dL Albumin/Globulin Ratio 1.3 (1.0-2.2) Lipase 20 L (22-51) U/L Urine Color Urine Clarity (CLEAR) Urine pH (5.0-7.5) PH Ur Specific [place] (1.002-1.030) Urine Protein (NEGATIVE) mg/dL Urine Glucose (UA) (NEGATIVE) mg/dL Urine Ketones (NEGATIVE) mg/dL Urine Occult Blood (NEGATIVE) Urine Nitrite (NEGATIVE) Urine Bilirubin (NEGATIVE) Urine Urobilinogen (NORMAL) E.U./dL Ur Leukocyte Esterase (NEGATIVE) Urine RBC (0-5) /HPF Urine WBC (0-3) /HPF Ur Squamous Epith Cells (<= Few) Urine Bacteria (None Seen) /HPF Urine Yeast Ur Microscopic Review Urine Culture Comments Nasal Adenovirus (PCR) Nasal B. parapertussis DNA (PCR) Nasal Coronavir 229E PCR Nasal Coronavir HKU1 PCR Nasal Coronavir NL63 PCR Nasal Coronavir OC43 PCR Nasal Enterovir/Rhinovir PCR Nasal Influenza B PCR Nasal Influenza A PCR Nasal Parainfluen 1 PCR Nasal Parainfluen 2 PCR Nasal Parainfluen 3 PCR Nasal Parainfluen 4 PCR Nasal RSV (PCR) Nasal B.pertussis DNA PCR Nasal C.pneumoniae (PCR) Chi Human Metapneumo PCR Nasal M.pneumoniae (PCR) Nasal SARS-CoV-2 (PCR) 08/01/21 Range/Units 14:59 WBC 6.4 (4.8-10.8) x10^3/uL RBC 4.00 L (4.70-6.10) 10^6/uL Hgb 13.1 L (14.0-18.0) g/dL Hct 39.3 L (42.0-52.0) % MCV 98.3 H (80.0-94.0) fL MCH 32.8 H (27.0-31.0) pg MCHC 33.3 (32.0-36.0) g/dL RDW 12.4 (12.0-15.0) % Plt Count 142 (130-450) 10^3/uL MPV 8.9 (7.4-11.4) fL Neut # (Auto) 5.2 (1.5-6.6) 10^3/uL Lymph # (Auto) 0.9 L (1.5-3.5) 10^3/uL [place]ansom # (Auto) 0.3 (0.0-1.0) 10^3/uL Eos # (Auto) 0.0 (0.0-0.7) 10^3/uL Baso # (Auto) 0.0 (0.0-0.1) 10^3/uL Absolute Nucleated RBC 0.00 x10^3/uL Total Counted Band Neuts % (Manual) (0 - 10) % Abnorm Lymph % (Manual) % Nucleated RBC % 0.0 /100WBC Neutrophils # (Manual) (1.5-6.6) 10^3/uL Lymphocytes # (Manual) (1.5-3.5) 10^3/uL Monocytes # (Manual) (0.0-1.0) 10^3/uL Eosinophils # (Manual) (0-0.7) 10^3/uL Basophils # (Manual) (0-0.1) 10^3/uL Differential Comment WBC Morphology (NORMAL) Platelet Estimate (NORMAL) Platelet Morphology (NORMAL) RBC Morph Micro Appear (NORMAL) Sodium (135-145) mmol/L Potassium (3.5-5.0) mmol/L Chloride (101-111) mmol/L Carbon Dioxide (21-32) mmol/L Anion Gap (6-13) BUN (6-20) mg/dL Creatinine (0.6-1.2) mg/dL Estimated GFR (MDRD) (>89) Glucose (70-100) mg/dL Lactic Acid (0.5-2.2) mmol/L Calcium (8.5-10.3) mg/dL Magnesium (1.7-2.8) mg/dL Total Bilirubin (0.2-1.0) mg/dL AST (10-42) IU/L ALT (10-60) IU/L Alkaline Phosphatase (42-121) IU/L Troponin I High Sens (2.3-19.7) ng/L B-Natriuretic Peptide (5-100) pg/mL Total Protein (6.7-8.2) g/dL Albumin (3.2-5.5) g/dL Globulin (2.1-4.2) g/dL Albumin/Globulin Ratio (1.0-2.2) Lipase (22-51) U/L Urine Color Urine Clarity (CLEAR) Urine pH (5.0-7.5) PH Ur Specific [place] (1.002-1.030) Urine Protein (NEGATIVE) mg/dL Urine Glucose (UA) (NEGATIVE) mg/dL Urine Ketones (NEGATIVE) mg/dL Urine Occult Blood (NEGATIVE) Urine Nitrite (NEGATIVE) Urine Bilirubin (NEGATIVE) Urine Urobilinogen (NORMAL) E.U./dL Ur Leukocyte Esterase (NEGATIVE) Urine RBC (0-5) /HPF Urine WBC (0-3) /HPF Ur Squamous Epith Cells (<= Few) Urine Bacteria (None Seen) /HPF Urine Yeast Ur Microscopic Review Urine Culture Comments Nasal Adenovirus (PCR) Nasal B. parapertussis DNA (PCR) Nasal Coronavir 229E PCR Nasal Coronavir HKU1 PCR Nasal Coronavir NL63 PCR Nasal Coronavir OC43 PCR Nasal Enterovir/Rhinovir PCR Nasal Influenza B PCR Nasal Influenza A PCR Nasal Parainfluen 1 PCR Nasal Parainfluen 2 PCR Nasal Parainfluen 3 PCR Nasal Parainfluen 4 PCR Nasal RSV (PCR) Nasal B.pertussis DNA PCR Nasal C.pneumoniae (PCR) Chi Human Metapneumo PCR Nasal M.pneumoniae (PCR) Nasal SARS-CoV-2 (PCR) ABX Reporting Has patient been on IV antibiotics over the past 48 hours?: Yes Sepsis Event Note (H) - Evaluation Possible source of Sepsis: positive: Unknown - Sepsis Criteria Sepsis Criteria: Metabolic: lactate > 2 mmol/L Assessment/Plan - Problem List (1) Sepsis Impression: This is improved. This is secondary to the gram-negative bacteremia although the source of this is not clear at the moment. Initially presented with fever, tachycardia and elevated lactic acid. All of these have since resolved. We have discontinued vancomycin given blood cultures are growing gram-negative baci lli suggestive of E. coli. He will remain on cefepime. We will continue with gentle IV hydration today. Follow-up cultures. Qualifiers: Sepsis type: sepsis due to unspecified organism Sepsis acute organ dysfunction status: without acute organ dysfunction Qualified Code(s): A41.9 - Sepsis, unspecified organism (2) Bacteremia due to Escherichia coli Impression: Initial blood cultures are growing gram-negative bacilli suggestive of E. coli. The etiology of this is not clear. Imaging has not revealed any obvious source of infection. His urinalysis only revealed 4-5 WBCs and few bacteria. I have requested that the lab run a culture on this as this may potentially be the source of the bacteremia. Especially given he is a history of prostate cancer and is immunocompromised so he likely will not be able to mount an appropriate immune response and hence the low WBC's in the urine. We will keep him on cefepime IV for the time being and if he continues to show improvement we will de-escalate to ceftriaxone or wait for cultures and sensitivities. (3) Hypoxia Impression: He is hypoxic quiring 2 L of oxygen. Imaging did not reveal any acute abnormalities. Suspect this may related to the sepsis we will look to wean the oxygen today. (4) Syncope Impression: This is likely related to the sepsis as he was initially hypotensive at times. Telemetry here has not revealed any arrhythmias as he has been in a sinus rhythm. We will look to obtain echocardiogram if he remains hospitalized through Wednesday. Qualifiers: Syncope type: unspecified Qualified Code(s): R55 - Syncope and collapse (5) Prostate cancer metastatic to intrapelvic lymph node Impression: He has known metastatic prostate cancer with pelvic lymphadenopathy. He is on Lupron, Zytiga, and prednisone. He will continue outpatient follow-up with oncology once discharged.
[2021-08-02] MEDS: ENOXAPARIN 40 MG/0.4 ML SYRINGE SUBQ SCH (08:35)
[2021-08-02] MEDS: LORATADINE 10 MG TABLET PO SCH (08:39)
[2021-08-02] MEDS: predniSONE 5 MG TABLET PO SCH ×2 (08:42→21:13)
[2021-08-02] MEDS: traMADol 50 MG TABLET PO PRN (16:03)
[2021-08-02] MEDS: D5.45NS W/20 MEQ KCL 1,000 ML IV SCH (21:13)
[2021-08-03] MEDS: ACETAMINOPHEN 325 MG TABLET PO PRN ×3 (00:08→14:42)
[2021-08-03] MEDS: SODIUM CHLORIDE FLUSH 0.9% 10 ML SYRINGE IVP SCH ×3 (01:36→17:03)
[2021-08-03 04:32] LABS: BASOPHILS % (AUTO) 0.3 %; EOSINOPHILS % (AUTO) 0.4 %; HCT - HEMATOCRIT 33.4 % (42.0-52.0); HGB - HEMOGLOBIN 11.3 g/dL (14.0-18.0); LYMPHOCYTES % (AUTO) 9.1 %; MEAN CORPUSCULAR HEMOGLOBIN 32.5 pg (27.0-31.0); MEAN CORPUSCULAR HGB CONC 33.8 g/dL (32.0-36.0); MEAN PLATELET VOLUME 9.3 fL (7.4-11.4); MONOCYTES % (AUTO) 9.8 %; NEUTROPHILS % (AUTO) 79.8 %; PLT - PLATELET COUNT 105 10^3/uL (130-450); RED BLOOD COUNT 3.48 10^6/uL (4.70-6.10); RED CELL DISTRIBUTION WIDTH 12.6 % (12.0-15.0)
[2021-08-03 04:37] LABS: CALCIUM 8.3 mg/dL (8.5-10.3); CREATININE 0.8 mg/dL (0.6-1.2); MAGNESIUM 1.9 mg/dL (1.7-2.8); POTASSIUM 3.5 mmol/L (3.5-5.0)
[2021-08-03 04:42] LABS: ABNORMAL LYMPHS % (MANUAL) 0 %
[2021-08-03 04:52] LABS: BAND NEUTROPHILS % (MANUAL) 9 %; DIFFERENTIAL COMMENT MANUAL DIFFERENTIAL; LYMPHOCYTES # (MANUAL) 0.6 10^3/uL (1.5-3.5); LYMPHOCYTES % (MANUAL) 8 %; MONOCYTES # (MANUAL) 0.2 10^3/uL (0.0-1.0); NEUTROPHILS # (MANUAL) 6.2 10^3/uL (1.5-6.6); PLATELET ESTIMATE, MANUAL DECREASED (<130,000) (NORMAL); PLATELET MORPHOLOGY NORMAL APPEARANCE (NORMAL); RBC MORPHOLOGY (MULTIPLE) NORMAL APPEARANCE (NORMAL); WBC MORPHOLOGY (MULTIPLE) NORMAL APPEARANCE (NORMAL)
[2021-08-03] MEDS: CEFEPIME 2 GM in SODIUM CHLORIDE 0.9% MINIBAG 100 ML IV SCH ×2 (05:43→17:59)
--- NOTE | 2021-08-03 07:10 | PROVIDER PROGRESS NOTE ---
Subjective - Prog Note Date Prog Note Date: 08/03/21 - Subjective Subjective: He reports feeling quite miserable overall but slightly improved compared to admission. He states he was having back pain 2 to 3 days prior to admission. Denies any trauma or fall. He also states he had occasional urinary incontinence over the past couple of days as well. Reports no radiculopathy or weakness in his lower extremities. He has not had any incontinence since hospitalization but states whenever he has the urge to urinate, he will just go to the bathroom immediately Current Medications - Current Medications Current Medications: Active Medications Acetaminophen (Acetaminophen 325 Mg Tablet) 650 mg PO Q4HR PRN PRN Reason: Pain 1 to 4 Last Admin: 08/03/21 05:40 Dose: 650 mg Documented by: Enoxaparin Sodium (Enoxaparin 40 Mg/0.4 Ml Syringe) 40 mg SUBQ DAILY [facility] Last Admin: 08/03/21 08:39 Dose: 40 mg Documented by: Cefepime HCl 2 gm/ Sodium (Chloride) 100 mls @ 200 mls/hr IV Q12H [facility] Last Infusion: 08/03/21 06:54 Dose: Infused Documented by: Potassium Chloride/Dextrose/Sod Cl (D5.45ns W/20 Meq Kcl) 1,000 mls @ 83.333 mls/hr IV .Q12H [facility] Last Admin: 08/03/21 08:35 Dose: 83.333 mls/hr Documented by: Loratadine (Loratadine 10 Mg Tablet) 10 mg PO DAILY [facility] Last Admin: 08/03/21 08:39 Dose: 10 mg Documented by: Ondansetron HCl (Ondansetron 4 Mg/2 Ml Vial) 4 mg IVP Q6HR PRN PRN Reason: Nausea / Vomiting Last Admin: 08/03/21 01:36 PDT Dose: 4 mg Documented by: Prednisone (Prednisone 5 Mg Tablet) 5 mg PO BID [facility] Last Admin: 08/03/21 08:39 Dose: 5 mg Documented by: Sodium Chloride (Sodium Chloride Flush 0.9% 10 Ml Syringe) 10 ml IVP PRN PRN PRN Reason: NEEDED PER PROVIDER ORDERS Sodium Chloride (Sodium Chloride Flush 0.9% 10 Ml Syringe) 10 ml IVP 0100,0900,1700 [facility] Last Admin: 08/03/21 08:43 Dose: 10 ml Documented by: Tramadol HCl (Tramadol 50 Mg Tablet) 50 mg PO Q4HR PRN PRN Reason: PAIN Last Admin: 08/02/21 16:03 Dose: 50 mg Documented by: Cetirizine HCl [Zyrtec] 10 mg PO DAILY 01/15/14 Abiraterone Acetate [Zytiga] 1,000 tab PO DAILY 12/13/18 Butalb/Acetaminophen/Caffeine [Ewsptf-Ziiwosmm-Qpdc 50-325-40] 1 each PO Q4HR PRN 12/13/18 Leuprolide Acetate [Lupron Depot] 22.5 mg IM Q3M 12/13/18 predniSONE [Prednisone] 5 mg PO BID 12/13/18 lisinopriL [Prinivil] 10 mg PO DAILY 03/12/20 Objective - Vital Signs/Intake & Output Reviewed Vital Signs: Yes Vital Signs: Vital Signs x48h Temp Pulse Resp BP Pulse Ox 08/03/21 05:00 365.7 C H 77 16 111/57 L 92 Intake & Output: Intake & Output 07/31/21 08/01/21 08/02/21 08/03/21 23:59 23:59 23:59 22:59 Intake Total 5185.49 2908.400 100 Output Total 400 1875 950 Balance 4785.49 1033.400 -850 - Objective General Appearance: positive: Alert, Lethargic Eyes Bilateral: positive: Normal inspection, Conjunctivae nml ENT: positive: ENT inspection nml Neck: positive: Nml inspection Respiratory: positive: No respiratory distress. negative: Wheezes, Rales Cardiovascular: positive: Regular rate & rhythm, No murmur. negative: Tachycardia Abdomen: positive: Non-tender, No distention. negative: Tenderness Back: positive: Other (No lumbar or paraspinal tenderness.). negative: CVA tenderness (R), CVA tenderness (L) Skin: positive: Warm, Dry Extremities: positive: No pedal edema Neurologic/Psychiatric: positive: Motor nml, Sensation nml. negative: Disoriented to person, Disoriented to place, Disoriented to time, Weakness, Sensory loss - Lab Results Fish Bones: 08/03/21 04:20 08/03/21 04:20 Other Labs: Lab Results x24hrs 11/07/21 11/07/21 Range/Units 04:20 04:20 WBC 7.0 (4.8-10.8) x10^3/uL RBC 3.48 L (4.70-6.10) 10^6/uL Hgb 11.3 L (14.0-18.0) g/dL Hct 33.4 L (42.0-52.0) % MCV 96.0 H (80.0-94.0) fL MCH 32.5 H (27.0-31.0) pg MCHC 33.8 (32.0-36.0) g/dL RDW 12.6 (12.0-15.0) % Plt Count 105 L (130-450) 10^3/uL MPV 9.3 (7.4-11.4) fL Neut # (Auto) Not Reportable Lymph # (Auto) Not Reportable [place] # (Auto) Not Reportable Eos # (Auto) Not Reportable Baso # (Auto) Not Reportable Absolute Nucleated RBC Not Reportable Total Counted 100 Band Neuts % (Manual) 9 (0 - 10) % Abnorm Lymph % (Manual) 0 % Nucleated RBC % Not Reportable Neutrophils # (Manual) 6.2 (1.5-6.6) 10^3/uL Lymphocytes # (Manual) 0.6 L (1.5-3.5) 10^3/uL Monocytes # (Manual) 0.2 (0.0-1.0) 10^3/uL Eosinophils # (Manual) 0.0 (0-0.7) 10^3/uL Basophils # (Manual) 0.0 (0-0.1) 10^3/uL Differential Comment MANUAL DIFFERENTIAL WBC Morphology NORMAL APPEARANCE (NORMAL) Platelet Estimate DECREASED (<130,000) (NORMAL) Platelet Morphology NORMAL APPEARANCE (NORMAL) RBC Morph Micro Appear NORMAL APPEARANCE (NORMAL) Sodium 136 (135-145) mmol/L Potassium 3.5 (3.5-5.0) mmol/L Chloride 105 (101-111) mmol/L Carbon Dioxide 22 (21-32) mmol/L Anion Gap 9.0 (6-13) BUN 11 (6-20) mg/dL Creatinine 0.8 (0.6-1.2) mg/dL Estimated GFR (MDRD) 96 (>89) Glucose 140 H (70-100) mg/dL Calcium 8.3 L (8.5-10.3) mg/dL Magnesium 1.9 (1.7-2.8) mg/dL ABX Reporting Has patient been on IV antibiotics over the past 48 hours?: Yes Sepsis Event Note (H) - Evaluation Possible source of Sepsis: positive: Unknown - Sepsis Criteria Sepsis Criteria: Metabolic: lactate > 2 mmol/L Assessment/Plan - Problem List (1) Sepsis Impression: Sepsis has resolved. This is believed to be secondary to the gram-negative bacteremia which I suspect may be related to her underlying urinary tract infection. His fever, tachycardia, mild acidosis has resolved. He will remain on cefepime IV until we have sensitivities. Qualifiers: Sepsis type: sepsis due to unspecified organism Sepsis acute organ dys function status: without acute organ dysfunction Qualified Code(s): A41.9 - Sepsis, unspecified organism (2) Bacteremia due to Escherichia coli Impression: His blood cultures are growing E. coli. Suspected source is a urinary tract infection although did not reveal leukocyte esterase or nitrates. Only had a few pyuria and few bacteria but I suspect this may be that he is immunocompromised he is unable to mount an immune response. I have asked the lab to run a urine culture either way base if it is growing E. coli I suspect this is a source given there is a lack of any other obvious source of infection. This male potentially be due to an epidural abscess given his back pain. We will keep him on cefepime until we have sensitivities. Given he still feels quite miserable today, we will repeat blood cultures. MRI of lumbar spine has been ordered. (3) Lower back pain Impression: He now tells me he has had back pain prior to admission for 2 to 3 days and occasional urinary incontinence. Given this, we will obtain MRI of the lumbar spine to evaluate for an abscess or osteomyelitis. His neurologic exam is unremarkable at this time and he really does not have any tenderness in his lumbar spine but nonetheless, we will proceed with imaging. Qualifiers: Chronicity: acute Back pain laterality: midline Sciatica presence: without sciatica Qualified Code(s): M54.50 - Low back pain, unspecified (4) Hypoxia Impression: This is resolved. This is like related to the sepsis. He is now saturating well on room air. Imaging revealed no acute normalities. (5) Syncope Impression: This is likely related to the sepsis as he was initially hypotensive at times. Telemetry here has not revealed any arrhythmias as he has been in a sinus rhythm. We will obtain an echocardiogram tomorrow. Qualifiers: Syncope type: unspecified Qualified Code(s): R55 - Syncope and collapse (6) Prostate cancer metastatic to intrapelvic lymph node Impression: He has known metastatic prostate cancer with pelvic lymphadenopathy. He is on Lupron, Zytiga, and prednisone. We will continue prednisone. He will continue outpatient follow-up with oncology once discharged.
[2021-08-03] MEDS: D5.45NS W/20 MEQ KCL 1,000 ML IV SCH ×2 (08:35→21:07)
[2021-08-03] MEDS: predniSONE 5 MG TABLET PO SCH ×2 (08:39→21:07)
[2021-08-03] MEDS: ENOXAPARIN 40 MG/0.4 ML SYRINGE SUBQ SCH (08:39)
[2021-08-03] MEDS: LORATADINE 10 MG TABLET PO SCH (08:39)
[2021-08-03] MEDS: traMADol 50 MG TABLET PO PRN ×2 (12:17→16:13)
--- NOTE | 2021-08-03 12:38 | PHARMACY PROGRESS NOTE ---
- Best Possible Medication History Admit Date and Time: 08/01/211810 Processed by: Pharmacy Medication History completed: Yes Patient Interview: Pt unable to participate Secondary Source(s): Spouse/Significant other, Pharmacy records, Insurance re cords As the person ultimately responsible for medication therapy, providers are able to order a medication from an existing home medication list in [facility] via the "Reconcile Routine" prior to Confirmation of that medication by pharmacy retail support specialist. Such practice is discouraged except when the physician, in their clinical judgment, deems that a medical need exists for a medication without regard to pr evious use.
[2021-08-04] MEDS: SODIUM CHLORIDE FLUSH 0.9% 10 ML SYRINGE IVP SCH ×3 (00:19→17:09)
[2021-08-04] MEDS: ACETAMINOPHEN 325 MG TABLET PO PRN ×2 (01:37→21:18)
[2021-08-04] MEDS ORDERED: CEFEPIME 2 GM in SODIUM CHLORIDE 0.9% MINIBAG 100 ML IV STA (01:39)
[2021-08-04] MEDS: SODIUM CHLORIDE 0.9% 1,000 ML IV SCH ×3 (01:50→21:18)
[2021-08-04] MEDS ORDERED: CEFEPIME 2 GM in SODIUM CHLORIDE 0.9% MINIBAG 100 ML IV SCH ×2 (02:00→14:00)
[2021-08-04 05:01] LABS: BASOPHILS % (AUTO) 0.2 %; HCT - HEMATOCRIT 32.1 % (42.0-52.0); HGB - HEMOGLOBIN 10.9 g/dL (14.0-18.0); LYMPHOCYTES # (AUTO) 0.5 10^3/uL (1.5-3.5); LYMPHOCYTES % (AUTO) 9.2 %; MEAN CORPUSCULAR HEMOGLOBIN 32.3 pg (27.0-31.0); MEAN CORPUSCULAR VOLUME 95.3 fL (80.0-94.0); MEAN PLATELET VOLUME 9.3 fL (7.4-11.4); MONOCYTES # (AUTO) 0.6 10^3/uL (0.0-1.0); MONOCYTES % (AUTO) 10.7 %; NEUTROPHILS # (AUTO) 4.5 10^3/uL (1.5-6.6); NEUTROPHILS % (AUTO) 79.5 %; PLT - PLATELET COUNT 90 10^3/uL (130-450); RED BLOOD COUNT 3.37 10^6/uL (4.70-6.10); RED CELL DISTRIBUTION WIDTH 12.6 % (12.0-15.0); WHITE BLOOD COUNT 5.7 x10^3/uL (4.8-10.8)
[2021-08-04 05:09] LABS: CALCIUM 8.1 mg/dL (8.5-10.3); CREATININE 0.8 mg/dL (0.6-1.2); MAGNESIUM 1.9 mg/dL (1.7-2.8); POTASSIUM 3.5 mmol/L (3.5-5.0)
[2021-08-04] MEDS: ENOXAPARIN 40 MG/0.4 ML SYRINGE SUBQ SCH (08:48)
[2021-08-04] MEDS: LORATADINE 10 MG TABLET PO SCH (08:57)
[2021-08-04] MEDS: predniSONE 5 MG TABLET PO SCH ×2 (08:57→21:18)
[2021-08-04] MEDS: traMADol 50 MG TABLET PO PRN ×2 (08:57→21:18)
[2021-08-04] MEDS ORDERED: GADOBUTROL 10 MMOL/10 ML VIAL ONE (11:35)
[2021-08-04] MEDS: GADOBUTROL 10 MMOL/10 ML VIAL IVP ONE (12:00)
--- NOTE | 2021-08-04 13:15 | MRI Report ---
PROCEDURE: Lumbar Spine W/WO INDICATIONS: Fever. Back pain. Bacteremia. CONTRAST: IV CONTRAST: Gadavist ml: 8.6 TECHNIQUE: Noncontrast sagittal T1 spin echo and T2 fast spin echo, sagittal STIR, axial T1 and T2 fast spin ech o through the lumbar spine. In cases with scoliosis, additional coronal T2 fast spin echo may be per formed. After the administration of contrast, sagittal and axial T1 spin echo with fat saturation th rough the lumbar spine. COMPARISON: None. FINDINGS: Image quality: Excellent. Alignment and curvature: There is normal bony alignment. Marrow: Marrow is of normal overall signal. No acute vertebral body compression fractures. No susp icious marrow enhancement. Spinal cord: Conus medullaris terminates at the L1 level. Visualized spinal cord demonstrates ryan l signal, without suspicious enhancement. Paraspinous soft tissues: No paravertebral masses or abnormal enhancement. T12-L1: No canal stenosis or foraminal stenosis. L1-L2: No canal stenosis or foraminal stenosis. L2-L3: Facet hypertrophy. No canal stenosis or foraminal stenosis. L3-L4: No canal stenosis or foraminal stenosis. L4-L5: Short pedicles. Disc bulge. Facet hypertrophy. Mild to moderate canal stenosis. Mild to mode rate bilateral foraminal narrowing. L5-S1: Short pedicles. Facet hypertrophy. Right foraminal annulus tear associated with foraminal di sc bulge and mild to moderate right foraminal narrowing. Mild canal stenosis. Mild to moderate bilate ral foraminal stenosis. IMPRESSION: 1. There are no findings which are suspicious for discitis or osteomyelitis. 2. Degenerative change. Multilevel facet arthropathy. 3. Canal stenosis is mild to moderate at L4-L5 and mild at L5-S1. 4. Multilevel foraminal narrowing as described above. 5. There is a right foraminal annulus tear plus disc bulge at L5-S1. Reviewed by: Luis Hull MD on 08/04/2021 1:14 PM PST Approved by: Luis Hull MD on 08/04/2021 1:14 PM PST Station ID: [id number]
--- NOTE | 2021-08-04 13:24 | PROVIDER PROGRESS NOTE ---
Subjective - Prog Note Date Prog Note Date: 08/04/21 - Subjective Subjective: He reports feeling no better compared to yesterday. Only slight improvement since hospitalization. He had severe rigors and chills last night. He states he feels absolutely miserable and does not want to keep feeling like this. He has no specific complaints per se. [place] a little nauseous today. No pain except for the back pain. Current Medications - Current Medications Current Medications: Active Medications Acetaminophen (Acetaminophen 325 Mg Tablet) 650 mg PO Q4HR PRN PRN Reason: Pain 1 to 4 Last Admin: 08/04/21 01:37 Dose: 650 mg Documented by: Enoxaparin Sodium (Enoxaparin 40 Mg/0.4 Ml Syringe) 40 mg SUBQ DAILY [facility] Last Admin: 08/04/21 08:48 Dose: Not Given Documented by: Sodium Chloride (Normal Saline 0.9%) 1,000 mls @ 125 mls/hr IV .Q8H [facility] Last Admin: 08/04/21 10:24 Dose: 125 mls/hr Documented by: Ceftriaxone Sodium 1 gm/ (Sodium Chloride) 100 mls @ 200 mls/hr IV DAILY [facility] Loratadine (Loratadine 10 Mg Tablet) 10 mg PO DAILY [facility] Last Admin: 08/04/21 08:57 Dose: 10 mg Documented by: Ondansetron HCl (Ondansetron 4 Mg/2 Ml Vial) 4 mg IVP Q6HR PRN PRN Reason: Nausea / Vomiting Last Admin: 08/03/21 01:36 PDT Dose: 4 mg Documented by: Prednisone (Prednisone 5 Mg Tablet) 5 mg PO BID [facility] Last Admin: 08/04/21 08:57 Dose: 5 mg Documented by: Sodium Chloride (Sodium Chloride Flush 0.9% 10 Ml Syringe) 10 ml IVP PRN PRN PRN Reason: NEEDED PER PROVIDER ORDERS Sodium Chloride (Sodium Chloride Flush 0.9% 10 Ml Syringe) 10 ml IVP 0100,0900,1700 [facility] Last Admin: 08/04/21 08:48 Dose: Not Given Documented by: Tramadol HCl (Tramadol 50 Mg Tablet) 50 mg PO Q4HR PRN PRN Reason: PAIN Last Admin: 08/04/21 08:57 Dose: 50 mg Documented by: Abiraterone Acetate [Zytiga] 1,000 tab PO QPM 12/13/18 Butalb/Acetaminophen/Caffeine [Fsriha-Gtcanwma-Gfwz 50-325-40] 1 each PO Q4HR PRN 12/13/18 Leuprolide Acetate [Lupron Depot] 22.5 mg IM Q3M 12/13/18 predniSONE [Prednisone] 5 mg PO BID 12/13/18 lisinopriL [Prinivil] 10 mg PO DAILY 03/12/20 Ascorbic Acid [Vitamin C] 1,000 mg PO DAILY 08/03/21 Cetirizine [ZyrTEC] 10 mg PO QPM 08/03/21 Cholecalciferol (Vitamin D3) [Vitamin D3] 50 mcg PO DAILY 08/03/21 Loratadine [Allergy Relief] 10 mg PO DAILY 08/03/21 Zinc Gluconate [Zinc] 50 mg PO DAILY 08/03/21 Objective - Vital Signs/Intake & Output Reviewed Vital Signs: Yes Vital Signs: Vital Signs x48h Temp Pulse Resp BP Pulse Ox 08/04/21 13:00 36.6 C 71 17 128/77 95 08/04/21 08:16 36.7 C 72 16 113/66 94 Intake & Output: Intake & Output 08/02/21 08/03/21 08/03/21 08/04/21 00:59 00:59 23:59 23:59 Intake Total 1493.054 Output Total 100 Balance 1393.054 - Objective General Appearance: positive: Alert, Mild distress, Lethargic Eyes Bilateral: positive: Normal inspection, Conjunctivae nml ENT: positive: ENT inspection nml Neck: positive: Nml inspection Respiratory: positive: No respiratory distress. negative: Wheezes, Rales Cardiovascular: positive: Regular rate & rhythm. negative: Irregularly irregular, Tachycardia Abdomen: positive: Non-tender, No distention. negative: Tenderness Skin: positive: Warm, Dry Extremities: positive: No pedal edema Neurologic/Psychiatric: positive: Motor nml. negative: Disoriented to person, Disoriented to place, Disoriented to time - Lab Results Fish Bones: 08/04/21 04:51 08/04/21 04:51 Other Labs: Lab Results x24hrs 08/04/21 08/04/21 08/04/21 Range/Units 04:51 04:51 04:51 WBC 5.7 (4.8-10.8) x10^3/uL RBC 3.37 L (4.70-6.10) 10^6/uL Hgb 10.9 L (14.0-18.0) g/dL Hct 32.1 L (42.0-52.0) % MCV 95.3 H (80.0-94.0) fL MCH 32.3 H (27.0-31.0) pg MCHC 34.0 (32.0-36.0) g/dL RDW 12.6 (12.0-15.0) % Plt Count 90 L (130-450) 10^3/uL MPV 9.3 (7.4-11.4) fL Neut # (Auto) 4.5 (1.5-6.6) 10^3/uL Lymph # (Auto) 0.5 L (1.5-3.5) 10^3/uL [place] # (Auto) 0.6 (0.0-1.0) 10^3/uL Eos # (Auto) 0.0 (0.0-0.7) 10^3/uL Baso # (Auto) 0.0 (0.0-0.1) 10^3/uL Absolute Nucleated RBC 0.00 x10^3/uL Nucleated RBC % 0.0 /100WBC Sodium 135 (135-145) mmol/L Potassium 3.5 (3.5-5.0) mmol/L Chloride 103 (101-111) mmol/L Carbon Dioxide 24 (21-32) mmol/L Anion Gap 8.0 (6-13) BUN 15 (6-20) mg/dL Creatinine 0.8 (0.6-1.2) mg/dL Estimated GFR (MDRD) 96 (>89) Glucose 136 H (70-100) mg/dL Lactic Acid 0.9 (0.5-2.2) mmol/L Calcium 8.1 L (8.5-10.3) mg/dL Magnesium 1.9 (1.7-2.8) mg/dL ABX Reporting Has patient been on IV antibiotics over the past 48 hours?: Yes Sepsis Event Note (H) - Evaluation Possible source of Sepsis: positive: Unknown - Sepsis Criteria Sepsis Criteria: Metabolic: lactate > 2 mmol/L Assessment/Plan - Problem List (1) Bacteremia due to Escherichia coli Impression: The source of this is not clear. His urine culture has had no growth. Repeat cultures are negative to date. MRI revealed no evidence of osteomyelitis or discitis. He unfortunately still feels quite miserable and had severe rigors and chills yesterday. The E. coli is pansensitive and so we will switch him to ceftriaxone IV. Given he feels so miserable and appears quite ill, will discuss with infectious disease regarding any further recommendations. We will also check a ESR and CRP. (2) Lower back pain Impression: MRI showed no evidence of discitis or osteomyelitis. There was evidence of mild to moderate canal stenosis from L4-L5 and L5-S1. There was also a right foraminal annular tear and disc bulge at L5-S1. We will continue Tylenol as needed for pain control. He will need outpatient follow-up with orthopedic or neurosurgery. Qualifiers: Chronicity: acute Back pain laterality: midline Sciatica presence: without sciatica Qualified Code(s): M54.50 - Low back pain, unspecified (3) Prostate cancer metastatic to intrapelvic lymph node Impression: We are continuing his home prednisone. He will need outpatient follow-up with his oncologist once discharged. (4) Syncope Impression: This was likely due to the sepsis and hypotension he initially had. His echocardiogram revealed no significant valvular disease and he has been in sinus rhythm on telemetry. Qualifiers: Syncope type: unspecified Qualified Code(s): R55 - Syncope and collapse (5) Sepsis Impression: This appears to have resolved. He remains afebrile leukocytosis and a normal lactic acid. Qualifiers: Sepsis type: sepsis due to unspecified organism Sepsis acute organ dysfunction status: without acute organ dysfunction Qualified Code(s): A41.9 - Sepsis, unspecified organism (6) Hypoxia Impression: This has resolved and was secondary to the sepsis.
[2021-08-04] MEDS: cefTRIAXone 1 GM in SODIUM CHLORIDE 0.9% MINIBAG 100 ML IV SCH (13:58)
[2021-08-05] MEDS: SODIUM CHLORIDE FLUSH 0.9% 10 ML SYRINGE IVP SCH ×3 (03:49→17:46)
[2021-08-05] MEDS: SODIUM CHLORIDE 0.9% 1,000 ML IV SCH ×3 (03:50→19:32)
[2021-08-05 05:02] LABS: BASOPHILS % (AUTO) 0.3 %; EOSINOPHILS % (AUTO) 0.5 %; HGB - HEMOGLOBIN 10.4 g/dL (14.0-18.0); LYMPHOCYTES # (AUTO) 1.4 10^3/uL (1.5-3.5); LYMPHOCYTES % (AUTO) 22.7 %; MEAN CORPUSCULAR HEMOGLOBIN 31.9 pg (27.0-31.0); MEAN CORPUSCULAR HGB CONC 33.5 g/dL (32.0-36.0); MEAN CORPUSCULAR VOLUME 95.1 fL (80.0-94.0); MONOCYTES # (AUTO) 0.8 10^3/uL (0.0-1.0); MONOCYTES % (AUTO) 13.4 %; NEUTROPHILS # (AUTO) 3.9 10^3/uL (1.5-6.6); NEUTROPHILS % (AUTO) 62.6 %; PLT - PLATELET COUNT 110 10^3/uL (130-450); RED BLOOD COUNT 3.26 10^6/uL (4.70-6.10); RED CELL DISTRIBUTION WIDTH 12.6 % (12.0-15.0); WHITE BLOOD COUNT 6.3 x10^3/uL (4.8-10.8)
[2021-08-05 05:12] LABS: CALCIUM 8.1 mg/dL (8.5-10.3); CREATININE 0.8 mg/dL (0.6-1.2); MAGNESIUM 2.1 mg/dL (1.7-2.8); POTASSIUM 3.5 mmol/L (3.5-5.0)
[2021-08-05] MEDS: cefTRIAXone 1 GM in SODIUM CHLORIDE 0.9% MINIBAG 100 ML IV SCH (08:24)
[2021-08-05] MEDS: traMADol 50 MG TABLET PO PRN ×4 (08:24→21:37)
[2021-08-05] MEDS: ENOXAPARIN 40 MG/0.4 ML SYRINGE SUBQ SCH (08:24)
[2021-08-05] MEDS: predniSONE 5 MG TABLET PO SCH ×2 (08:24→21:37)
[2021-08-05] MEDS: LORATADINE 10 MG TABLET PO SCH (08:25)
[2021-08-05] MEDS: GADOBUTROL 10 MMOL/10 ML VIAL IVP ONE (12:13)
--- NOTE | 2021-08-05 14:23 | PROVIDER PROGRESS NOTE ---
Subjective - Prog Note Date Prog Note Date: 08/05/21 Prog Note Time: 14:22 - Subjective Pt reports feeling: Improved Subjective: Although he reports feeling physically improved today, Leonardo is still quite miserable. He states "if I had a gun in my hand, I wouldn't be here." Last night he had rigors and chills but he is afebrile. He is still having back pain. CT abdomen and pelvis negative, MRI back negative. His He has not been eating the past few days but today he took a few small bites of his food. His has requested that we resume his at home medications for treatment of his prostate cancer including Zytiga. Current Medications - Current Medications Current Medications: Active Medications Acetaminophen (Acetaminophen 325 Mg Tablet) 650 mg PO Q4HR PRN PRN Reason: Pain 1 to 4 Last Admin: 08/04/21 21:18 Dose: 650 mg Documented by: Enoxaparin Sodium (Enoxaparin 40 Mg/0.4 Ml Syringe) 40 mg SUBQ DAILY [facility] Last Admin: 08/05/21 08:24 Dose: 40 mg Documented by: Sodium Chloride (Normal Saline 0.9%) 1,000 mls @ 125 mls/hr IV .Q8H [facility] Last Admin: 08/05/21 11:58 Dose: 125 mls/hr Documented by: Ceftriaxone Sodium 2 gm/ (Sodium Chloride) 100 mls @ 200 mls/hr IV DAILY [facility] Loratadine (Loratadine 10 Mg Tablet) 10 mg PO DAILY [facility] Last Admin: 08/05/21 08:25 Dose: 10 mg Documented by: Ondansetron HCl (Ondansetron 4 Mg/2 Ml Vial) 4 mg IVP Q6HR PRN PRN Reason: Nausea / Vomiting Last Admin: 08/03/21 01:36 PDT Dose: 4 mg Documented by: Prednisone (Prednisone 5 Mg Tablet) 5 mg PO BID [facility] Last Admin: 08/05/21 08:24 Dose: 5 mg Documented by: Sodium Chloride (Sodium Chloride Flush 0.9% 10 Ml Syringe) 10 ml IVP PRN PRN PRN Reason: NEEDED PER PROVIDER ORDERS Sodium Chloride (Sodium Chloride Flush 0.9% 10 Ml Syringe) 10 ml IVP 0100,0900,1700 [facility] Last Admin: 08/05/21 08:25 Dose: 10 ml Documented by: Tramadol HCl (Tramadol 50 Mg Tablet) 50 mg PO Q4HR PRN PRN Reason: PAIN Last Admin: 08/05/21 13:43 Dose: 50 mg Documented by: Abiraterone Acetate [Zytiga] 1,000 mg PO QPM 12/13/18 Butalb/Acetaminophen/Caffeine [Jetkwg-Sxzjrlpt-Mfna 50-325-40] 1 each PO Q4HR PRN 12/13/18 Leuprolide Acetate [Lupron Depot] 22.5 mg IM Q3M 12/13/18 predniSONE [Prednisone] 5 mg PO BID 12/13/18 lisinopriL [Prinivil] 10 mg PO DAILY 03/12/20 Ascorbic Acid [Vitamin C] 1,000 mg PO DAILY 08/03/21 Cetirizine [ZyrTEC] 10 mg PO QPM 08/03/21 Cholecalciferol (Vitamin D3) [Vitamin D3] 50 mcg PO DAILY 08/03/21 Loratadine [Allergy Relief] 10 mg PO DAILY 08/03/21 Zinc Gluconate [Zinc] 50 mg PO DAILY 08/03/21 Objective - Vital Signs/Intake & Output Reviewed Vital Signs: Yes Vital Signs: Vital Signs x48h Temp Pulse Resp BP Pulse Ox 08/05/21 07:56 36.6 C 68 16 128/80 94 Intake & Output: Intake & Output 08/03/21 08/03/21 08/04/21 08/05/21 00:59 23:59 23:59 23:59 Intake Total 3093.054 2556.667 Output Total 1725 2200 Balance 1368.054 356.667 - Objective General Appearance: positive: No acute distress, Alert Eyes Bilateral: positive: PERRL, EOMI ENT: positive: No signs of dehydration Neck: positive: No JVD. negative: Stiff neck Respiratory: positive: Chest non-tender. negative: Wheezes, Rales, Rhonchi Cardiovascular: positive: Regular rate & rhythm. negative: No murmur, Gallop/S4 Abdomen: positive: Non-tender, No distention Skin: positive: Warm, Dry Extremities: positive: No pedal edema Neurologic/Psychiatric: positive: Oriented x3, CN's nml (2-12), Depressed mood/affect (He appears to be mentally fatigue from fighting illness) - Lab Results Fish Bones: 08/06/21 04:19 08/06/21 04:19 Other Labs: Lab Results x24hrs 08/05/21 08/05/21 08/04/21 Range/Units 04:55 04:55 04:51 WBC 6.3 (4.8-10.8) x10^3/uL RBC 3.26 L (4.70-6.10) 10^6/uL Hgb 10.4 L (14.0-18.0) g/dL Hct 31.0 L (42.0-52.0) % MCV 95.1 H (80.0-94.0) fL MCH 31.9 H (27.0-31.0) pg MCHC 33.5 (32.0-36.0) g/dL RDW 12.6 (12.0-15.0) % Plt Count 110 L (130-450) 10^3/uL MPV 9.0 (7.4-11.4) fL Neut # (Auto) 3.9 (1.5-6.6) 10^3/uL Lymph # (Auto) 1.4 L (1.5-3.5) 10^3/uL [place] # (Auto) 0.8 (0.0-1.0) 10^3/uL Eos # (Auto) 0.0 (0.0-0.7) 10^3/uL Baso # (Auto) 0.0 (0.0-0.1) 10^3/uL Absolute Nucleated RBC 0.00 x10^3/uL Nucleated RBC % 0.0 /100WBC ESR (0-20) mm/Hr Sodium 138 (135-145) mmol/L Potassium 3.5 (3.5-5.0) mmol/L Chloride 105 (101-111) mmol/L Carbon Dioxide 24 (21-32) mmol/L Anion Gap 9.0 (6-13) BUN 17 (6-20) mg/dL Creatinine 0.8 (0.6-1.2) mg/dL Estimated GFR (MDRD) 96 (>89) Glucose 104 H (70-100) mg/dL Calcium 8.1 L (8.5-10.3) mg/dL Magnesium 2.1 (1.7-2.8) mg/dL C-Reactive Protein 23.1 H (0-1.0) mg/dL 08/04/21 Range/Units 04:51 WBC (4.8-10.8) x10^3/uL RBC (4.70-6.10) 10^6/uL Hgb (14.0-18.0) g/dL Hct (42.0-52.0) % MCV (80.0-94.0) fL MCH (27.0-31.0) pg MCHC (32.0-36.0) g/dL RDW (12.0-15.0) % Plt Count (130-450) 10^3/uL MPV (7.4-11.4) fL Neut # (Auto) (1.5-6.6) 10^3/uL Lymph # (Auto) (1.5-3.5) 10^3/uL [place] # (Auto) (0.0-1.0) 10^3/uL Eos # (Auto) (0.0-0.7) 10^3/uL Baso # (Auto) (0.0-0.1) 10^3/uL Absolute Nucleated RBC x10^3/uL Nucleated RBC % /100WBC ESR 52 H (0-20) mm/Hr Sodium (135-145) mmol/L Potassium (3.5-5.0) mmol/L Chloride (101-111) mmol/L Carbon Dioxide (21-32) mmol/L Anion Gap (6-13) BUN (6-20) mg/dL Creatinine (0.6-1.2) mg/dL Estimated GFR (MDRD) (>89) Glucose (70-100) mg/dL Calcium (8.5-10.3) mg/dL Magnesium (1.7-2.8) mg/dL C-Reactive Protein (0-1.0) mg/dL ABX Reporting Has patient been on IV antibiotics over the past 48 hours?: Yes Sepsis Event Note (H) - Evaluation Possible source of Sepsis: positive: Unknown - Sepsis Criteria Sepsis Criteria: Metabolic: lactate > 2 mmol/L Assessment/Plan - Problem List (1) Bacteremia due to Escherichia coli Impression: The source of this is not clear. Given that CT abdomen and pelvis and MRI back are both negative, it is likely that the source is the prostate. His urine culture has had no growth. Repeat cultures are negative to date. He unfortunately still feels quite miserable and had severe rigors and chills last night. The E. coli is pansensitive, treated with Ceftriaxone IV, dose increased to 2g daily. Given he feels so miserable and appears quite ill, will discuss with infectious disease regarding any further recommendations. ESR 52. (2) Lower back pain Impression: MRI showed no evidence of discitis or osteomyelitis. There was evidence of mild to moderate canal stenosis from L4-L5 and L5-S1. There was also a right foraminal annular tear and disc bulge at L5-S1. We will continue Tylenol as needed for pain control. He will need outpatient follow-up with orthopedic or neurosurgery. Qualifiers: Chronicity: acute Back pain laterality: midline Sciatica presence: without sciatica Qualified Code(s): M54.50 - Low back pain, unspecified (3) Prostate cancer metastatic to intrapelvic lymph node Impression: We are continuing his home prednisone and will add his home Zytiga (his will bring this in.) He will need outpatient follow-up with his oncologist once discharged. (4) Syncope Impression: This was likely due to the sepsis and hypotension he initially had. His echocardiogram revealed no significant valvular disease and he has been in sinus rhythm on telemetry. Qualifiers: Syncope type: unspecified Qualified Code(s): R55 - Syncope and collapse (5) Sepsis Impression: This appears to have resolved. He remains afebrile leukocytosis and a normal lactic acid. Qualifiers: Sepsis type: sepsis due to unspecified organism Sepsis acute organ d ysfunction status: without acute organ dysfunction Qualified Code(s): A41.9 - Sepsis, unspecified organism (6) Hypoxia Impression: This has resolved and was secondary to the sepsis.
[2021-08-05] MEDS: ACETAMINOPHEN 325 MG TABLET PO PRN ×2 (17:52→21:37)
[2021-08-06] MEDS: ACETAMINOPHEN 325 MG TABLET PO PRN ×3 (01:16→16:48)
[2021-08-06] MEDS: traMADol 50 MG TABLET PO PRN ×5 (01:16→23:38)
[2021-08-06] MEDS: SODIUM CHLORIDE FLUSH 0.9% 10 ML SYRINGE IVP SCH ×4 (02:32→23:36)
[2021-08-06] MEDS: SODIUM CHLORIDE 0.9% 1,000 ML IV SCH ×3 (03:20→20:37)
[2021-08-06 05:26] LABS: BASOPHILS % (AUTO) 0.3 %; EOSINOPHILS # (AUTO) 0.1 10^3/uL (0.0-0.7); EOSINOPHILS % (AUTO) 0.9 %; HCT - HEMATOCRIT 30.2 % (42.0-52.0); HGB - HEMOGLOBIN 10.1 g/dL (14.0-18.0); LYMPHOCYTES # (AUTO) 1.2 10^3/uL (1.5-3.5); LYMPHOCYTES % (AUTO) 21.5 %; MEAN CORPUSCULAR HEMOGLOBIN 31.8 pg (27.0-31.0); MEAN CORPUSCULAR HGB CONC 33.4 g/dL (32.0-36.0); MEAN PLATELET VOLUME 9.2 fL (7.4-11.4); MONOCYTES # (AUTO) 0.6 10^3/uL (0.0-1.0); MONOCYTES % (AUTO) 10.7 %; NEUTROPHILS # (AUTO) 3.8 10^3/uL (1.5-6.6); NEUTROPHILS % (AUTO) 65.9 %; PLT - PLATELET COUNT 139 10^3/uL (130-450); RED BLOOD COUNT 3.18 10^6/uL (4.70-6.10); RED CELL DISTRIBUTION WIDTH 12.3 % (12.0-15.0); WHITE BLOOD COUNT 5.7 x10^3/uL (4.8-10.8)
[2021-08-06 05:30] LABS: CALCIUM 8.1 mg/dL (8.5-10.3); CREATININE 0.8 mg/dL (0.6-1.2); MAGNESIUM 2.1 mg/dL (1.7-2.8); POTASSIUM 3.8 mmol/L (3.5-5.0)
[2021-08-06] MEDS: polyethylene glycoL 3350 17 GM PACKET PO SCH (08:25)
[2021-08-06] MEDS: ENOXAPARIN 40 MG/0.4 ML SYRINGE SUBQ SCH (08:26)
[2021-08-06] MEDS: predniSONE 5 MG TABLET PO SCH ×2 (08:26→20:33)
[2021-08-06] MEDS: LORATADINE 10 MG TABLET PO SCH (08:26)
[2021-08-06] MEDS ORDERED: cefTRIAXone 2 GM in SODIUM CHLORIDE 0.9% MINIBAG 100 ML IV SCH (09:00)
--- NOTE | 2021-08-06 11:43 | PROVIDER PROGRESS NOTE ---
Subjective - Prog Note Date Prog Note Date: 08/06/21 Prog Note Time: 11:40 - Subjective Pt reports feeling: Improved Subjective: Mr. Patterson is feeling much better today and acknowledges that his mental state has improved significantly from yesterday. He is sitting up in his bed, eating his breakfast, and making jokes. He has a smile on his face and is laughing. His back pain is better today but continues to hinder his mobility. Current Medications - Current Medications Current Medications: Active Medications Acetaminophen (Acetaminophen 325 Mg Tablet) 650 mg PO Q4HR PRN PRN Reason: Pain 1 to 4 Last Admin: 08/06/21 06:12 Dose: 650 mg Documented by: Enoxaparin Sodium (Enoxaparin 40 Mg/0.4 Ml Syringe) 40 mg SUBQ DAILY [facility] Last Admin: 08/06/21 08:26 Dose: 40 mg Documented by: Sodium Chloride (Normal Saline 0.9%) 1,000 mls @ 125 mls/hr IV .Q8H [facility] Last Admin: 08/06/21 11:34 Dose: 125 mls/hr Documented by: Ceftriaxone Sodium 2 gm/ (Sodium Chloride) 100 mls @ 200 mls/hr IV DAILY [facility] Last Infusion: 08/06/21 10:39 Dose: Infused Documented by: Loratadine (Loratadine 10 Mg Tablet) 10 mg PO DAILY [facility] Last Admin: 08/06/21 08:26 Dose: 10 mg Documented by: Ondansetron HCl (Ondansetron 4 Mg/2 Ml Vial) 4 mg IVP Q6HR PRN PRN Reason: Nausea / Vomiting Last Admin: 08/03/21 01:36 PDT Dose: 4 mg Documented by: Polyethylene Glycol (Polyethylene Glycol 3350 17 Gm Packet) 17 gm PO DAILY [facility] Last Admin: 08/06/21 08:25 Dose: 17 gm Documented by: Prednisone (Prednisone 5 Mg Tablet) 5 mg PO BID [facility] Last Admin: 08/06/21 08:26 Dose: 5 mg Documented by: Sodium Chloride (Sodium Chloride Flush 0.9% 10 Ml Syringe) 10 ml IVP PRN PRN PRN Reason: NEEDED PER PROVIDER ORDERS Sodium Chloride (Sodium Chloride Flush 0.9% 10 Ml Syringe) 10 ml IVP 0100,0900,1700 [facility] Last Admin: 08/06/21 08:26 Dose: Not Given Documented by: Tramadol HCl (Tramadol 50 Mg Tablet) 50 mg PO Q4HR PRN PRN Reason: PAIN Last Admin: 08/06/21 06:12 Dose: 50 mg Documented by: Abiraterone Acetate [Zytiga] 1,000 mg PO QPM 12/13/18 Butalb/Acetaminophen/Caffeine [Mhaybw-Bxpgvvvn-Sqco 50-325-40] 1 each PO Q4HR PRN 12/13/18 Leuprolide Acetate [Lupron Depot] 22.5 mg IM Q3M 12/13/18 predniSONE [Prednisone] 5 mg PO BID 12/13/18 lisinopriL [Prinivil] 10 mg PO DAILY 03/12/20 Ascorbic Acid [Vitamin C] 1,000 mg PO DAILY 08/03/21 Cetirizine [ZyrTEC] 10 mg PO QPM 08/03/21 Cholecalciferol (Vitamin D3) [Vitamin D3] 50 mcg PO DAILY 08/03/21 Loratadine [Allergy Relief] 10 mg PO DAILY 08/03/21 Zinc Gluconate [Zinc] 50 mg PO DAILY 08/03/21 Objective - Vital Signs/Intake & Output Reviewed Vital Signs: Yes Vital Signs: Vital Signs x48h Temp Pulse Resp BP Pulse Ox 08/06/21 07:45 36.6 C 61 18 117/61 94 08/06/21 06:10 36.6 C 61 20 117/61 94 Intake & Output: Intake & Output 08/03/21 08/04/21 08/05/21 08/06/21 23:59 23:59 23:59 23:59 Intake Total 3093.054 4342.500 2745.00 Output Total 1725 3600 2075 Balance 1368.054 742.500 670.00 - Objective General Appearance: positive: No acute distress, Alert, Other (Sitting up in bed, laughing, smiling, and joking) Eyes Bilateral: positive: PERRL, EOMI ENT: positive: No signs of dehydration Neck: positive: No JVD. negative: Stiff neck Respiratory: positive: Chest non-tender, No respiratory distress. negative: Wheezes, Rales, Rhonchi Cardiovascular: positive: Regular rate & rhythm, No murmur, No gallop. negative: Friction rub Abdomen: positive: Non-tender, Nml bowel sounds. negative: Guarding, Rebound Skin: positive: No rash, Warm, Dry Extremities: positive: No pedal edema Neurologic/Psychiatric: positive: Oriented x3, CN's nml (2-12) - Lab Results Fish Bones: 08/06/21 04:19 08/06/21 04:19 Other Labs: Lab Results x24hrs 08/06/21 08/06/21 Range/Units 04:19 04:19 WBC 5.7 (4.8-10.8) x10^3/uL RBC 3.18 L (4.70-6.10) 10^6/uL Hgb 10.1 L (14.0-18.0) g/dL Hct 30.2 L (42.0-52.0) % MCV 95.0 H (80.0-94.0) fL MCH 31.8 H (27.0-31.0) pg MCHC 33.4 (32.0-36.0) g/dL RDW 12.3 (12.0-15.0) % Plt Count 139 (130-450) 10^3/uL MPV 9.2 (7.4-11.4) fL Neut # (Auto) 3.8 (1.5-6.6) 10^3/uL Lymph # (Auto) 1.2 L (1.5-3.5) 10^3/uL [place] # (Auto) 0.6 (0.0-1.0) 10^3/uL Eos # (Auto) 0.1 (0.0-0.7) 10^3/uL Baso # (Auto) 0.0 (0.0-0.1) 10^3/uL Absolute Nucleated RBC 0.00 x10^3/uL Nucleated RBC % 0.0 /100WBC Sodium 137 (135-145) mmol/L Potassium 3.8 (3.5-5.0) mmol/L Chloride 103 (101-111) mmol/L Carbon Dioxide 26 (21-32) mmol/L Anion Gap 8.0 (6-13) BUN 16 (6-20) mg/dL Creatinine 0.8 (0.6-1.2) mg/dL Estimated GFR (MDRD) 96 (>89) Glucose 116 H (70-100) mg/dL Calcium 8.1 L (8.5-10.3) mg/dL Magnesium 2.1 (1.7-2.8) mg/dL Sepsis Event Note (H) - Evaluation Possible source of Sepsis: positive: Unknown - Sepsis Criteria Sepsis Criteria: Metabolic: lactate > 2 mmol/L Assessment/Plan - Problem List (1) Bacteremia due to Escherichia coli Impression: The source of this is not clear. Given that CT abdomen and pelvis and MRI back are both negative, it is likely that the source is the prostate. His urine culture has had no growth. Repeat cultures are negative to date. He is feeling improved today. The E. coli is pansensitive, treated with Ceftriaxone IV, dose increased to 2g daily. Given he feels so miserable and appears quite ill, will discuss with infectious disease regarding any further recommendations. ESR 52. (2) Lower back pain Impression: MRI showed no evidence of discitis or osteomyelitis. There was evidence of mild to moderate canal stenosis from L4-L5 and L5-S1. There was also a right foraminal annular tear and disc bulge at L5-S1. We will continue Tylenol as needed for pain control. He will need outpatient follow-up with orthopedic or neurosurgery. Qualifiers: Chronicity: acute Back pain laterality: midline Sciatica presence: without sciatica Qualified Code(s): M54.50 - Low back pain, unspecified (3) Prostate cancer metastatic to intrapelvic lymph node Impression: We are continuing his home prednisone and are agreeable to him taking his home Zytiga (his will bring this in.) He will need outpatient follow-up with his oncologist once discharged. (4) Syncope Impression: This was likely due to the sepsis and hypotension he initially had. His echoca rdiogram revealed no significant valvular disease and he has been in sinus rhythm on telemetry. Qualifiers: Syncope type: unspecified Qualified Code(s): R55 - Syncope and collapse (5) Sepsis Impression: This appears to have resolved. He remains afebrile leukocytosis and a normal lactic acid. Qualifiers: Sepsis type: sepsis due to unspecified organism Sepsis acute organ dysfunction status: without acute organ dysfunction Qualified Code(s): A41.9 - Sepsis, unspecified organism (6) Hypoxia Impression: This has resolved and was secondary to the sepsis.
[2021-08-07] MEDS: traMADol 50 MG TABLET PO PRN ×4 (04:12→20:59)
[2021-08-07] MEDS: ACETAMINOPHEN 325 MG TABLET PO PRN ×4 (04:12→20:59)
[2021-08-07] MEDS: SODIUM CHLORIDE 0.9% 1,000 ML IV SCH ×3 (04:12→20:57)
[2021-08-07] MEDS: CIPROFLOXACIN 250 MG TABLET PO SCH ×2 (09:13→20:57)
[2021-08-07] MEDS: LORATADINE 10 MG TABLET PO SCH (09:13)
[2021-08-07] MEDS: predniSONE 5 MG TABLET PO SCH ×2 (09:13→20:57)
[2021-08-07] MEDS: ENOXAPARIN 40 MG/0.4 ML SYRINGE SUBQ SCH (09:14)
[2021-08-07] MEDS: polyethylene glycoL 3350 17 GM PACKET PO SCH (09:14)
[2021-08-07] MEDS: SODIUM CHLORIDE FLUSH 0.9% 10 ML SYRINGE IVP SCH ×2 (09:15→16:38)
[2021-08-07] MEDS: BUTALB/ACETAM/CAFF 50/325/40MG TABLET PO PRN (10:14)
[2021-08-07 10:28] LABS: PSA FREE < 0.005 ng/mL (0.16-2.81); PSA TOTAL < 0.008 ng/mL (0.000-2.000)
--- NOTE | 2021-08-07 11:04 | PROVIDER PROGRESS NOTE ---
Subjective - Prog Note Date Prog Note Date: 08/07/21 Prog Note Time: 11:02 - Subjective Pt reports feeling: Worse Subjective: For the last few days he did not have any pain. His main problem was generalized malaise it was so severe he could not even get out of bed. He has been gradually improving with alertness. But still did not want to get out of bed yesterday. Today his problem is headache. It is the top of his head. M akes him nauseated. He says that he gets these several times a year and he attributes them to migraine headaches. He usually takes Fioricet. He has a bowel that is 2 years old at home. Most recently his primary care provider says that he is probably not to be able to get Fioricet again and will be giving him traditional triptan drug. Patient is disappointed because he really likes the Fioricet relief of pain. He is asking if he can get some of that today. Otherwise he denies chest pain, palpitations, cough, shortness of breath. No abdominal pain. No urgency, frequency. Current Medications - Current Medications Current Medications: Active Medications Acetaminophen (Acetaminophen 325 Mg Tablet) 650 mg PO Q4HR PRN PRN Reason: Pain 1 to 4 Last Admin: 08/07/21 08:05 Dose: 650 mg Documented by: Acetaminophen/Butalbital/Caffeine (Butalb/Acetam/Caff 50/325/40mg Tablet) 2 tab PO Q6H PRN PRN Reason: HEADACHE Last Admin: 08/07/21 10:14 Dose: 2 tab Documented by: Ciprofloxacin (Ciprofloxacin 250 Mg Tablet) 500 mg PO BID [facility] Last Admin: 08/07/21 09:13 Dose: 500 mg Documented by: Enoxaparin Sodium (Enoxaparin 40 Mg/0.4 Ml Syringe) 40 mg SUBQ DAILY [facility] Last Admin: 08/07/21 09:14 Dose: 40 mg Documented by: Sodium Chloride (Normal Saline 0.9%) 1,000 mls @ 125 mls/hr IV .Q8H [facility] Last Admin: 08/07/21 04:12 Dose: 125 mls/hr Documented by: Loratadine (Loratadine 10 Mg Tablet) 10 mg PO DAILY [facility] Last Admin: 08/07/21 09:13 Dose: 10 mg Documented by: Ondansetron HCl (Ondansetron 4 Mg/2 Ml Vial) 4 mg IVP Q6HR PRN PRN Reason: Nausea / Vomiting Last Admin: 08/03/21 01:36 PDT Dose: 4 mg Documented by: Polyethylene Glycol (Polyethylene Glycol 3350 17 Gm Packet) 17 gm PO DAILY [facility] Last Admin: 08/07/21 09:14 Dose: 17 gm Documented by: Prednisone (Prednisone 5 Mg Tablet) 5 mg PO BID [facility] Last Admin: 08/07/21 09:13 Dose: 5 mg Documented by: Sodium Chloride (Sodium Chloride Flush 0.9% 10 Ml Syringe) 10 ml IVP PRN PRN PRN Reason: NEEDED PER PROVIDER ORDERS Sodium Chloride (Sodium Chloride Flush 0.9% 10 Ml Syringe) 10 ml IVP 0100,0900,1700 [facility] Last Admin: 08/07/21 09:15 Dose: Not Given Documented by: Tramadol HCl (Tramadol 50 Mg Tablet) 50 mg PO Q4HR PRN PRN Reason: PAIN Last Admin: 08/07/21 08:06 Dose: 50 mg Documented by: Abiraterone Acetate [Zytiga] 1,000 mg PO QPM 12/13/18 Butalb/Acetaminophen/Caffeine [Opawcf-Tscuobbv-Vrzv 50-325-40] 1 each PO Q4HR PRN 12/13/18 Leuprolide Acetate [Lupron Depot] 22.5 mg IM Q3M 12/13/18 predniSONE [Prednisone] 5 mg PO BID 12/13/18 lisinopriL [Prinivil] 10 mg PO DAILY 03/12/20 Ascorbic Acid [Vitamin C] 1,000 mg PO DAILY 08/03/21 Cetirizine [ZyrTEC] 10 mg PO QPM 08/03/21 Cholecalciferol (Vitamin D3) [Vitamin D3] 50 mcg PO DAILY 08/03/21 Loratadine [Allergy Relief] 10 mg PO DAILY 08/03/21 Zinc Gluconate [Zinc] 50 mg PO DAILY 08/03/21 Objective - Vital Signs/Intake & Output Reviewed Vital Signs: Yes Vital Signs: Vital Signs x48h Temp Pulse Resp BP BP Pulse Ox 08/07/21 07:47 36.7 C 64 20 102/60 95 08/07/21 03:12 36.8 C 71 18 116/71 96 Intake & Output: Intake & Output 08/04/21 08/05/21 08/06/21 08/07/21 23:59 23:59 23:59 23:59 Intake Total 3093.054 4342.500 4775.00 1297.917 Output Total 1725 3600 3625 2200 Balance 1368.054 556.485 1353.00 -902.083 - Objective General Appearance: positive: Alert, Mild distress (from the headache) Eyes Bilateral: positive: PERRL, EOMI ENT: positive: No signs of dehydration Neck: positive: No JVD. negative: Stiff neck Respiratory: positive: No respiratory distress. negative: Wheezes, Rales, Rhonchi Cardiovascular: positive: Regular rate & rhythm. negative: Gallop/S4, Friction rub Abdomen: positive: Non-tender, No organomegaly, Nml bowel sounds, No distention Skin: positive: Warm, Dry Neurologic/Psychiatric: positive: Oriented x3, CN's nml (2-12), Other (headache is not associated w any neuro findings on exam. top of head. constant. no visual changes. no facial dysesthesia). negative: Motor nml (generalized weakness that is moderate, doesn't want to get out of bed) - Lab Results Fish Bones: 08/06/21 04:19 08/06/21 04:19 Other Labs: Lab Results x24hrs 08/07/21 Range/Units 09:20 Prostate Specific Ag < 0.008 (0.000-2.000) ng/mL Free PSA < 0.005 L (0.16-2.81) ng/mL % Free PSA Calc TNP ABX Reporting Has patient been on IV antibiotics over the past 48 hours?: Yes Sepsis Event Note (H) - Evaluation Possible source of Sepsis: positive: Unknown - Sepsis Criteria Sepsis Criteria: Metabolic: lactate > 2 mmol/L Assessment/Plan - Problem List (1) Migraine Impression: Is the usual headache he gets. It is not a new pattern or a new frequency or intensity. He has gotten some Tylenol, not helping. He asked if he could get the Fioricet that he usually gets from home. Plan: Fioricet 2 tablets Qualifiers: Migraine type: without aura (2) Bacteremia due to Escherichia coli Impression: The source of this is not clear. Given that CT abdomen and pelvis and MRI back are both negative, but6 he has a hx of prostate cancer w seeds, the only source I can think of is the prostate. His urine culture has had no growth. Repeat cultures are negative to date. He has slowly improved since 08/05. The E. coli is pansensitive, treated with Ceftriaxone IV, dose increased to 2g daily. Cussed the case with infectious disease consult from [facility]. We went over the CT findings, the urine, prostate history, negative review of systems. He says that we may never find the cause of the gram-negative E. coli. All the imaging we have done is appropriate. Repeat blood culture are negative once treatment has been started. He recommends a total of 2 weeks of antibiotic therapy. He can be switched over to oral quinolones since the E. coli is pansensitive. He does not recommend doing further investigative work to try and find the source. We are going to treat what "we have in the hand". Plan: Stop Rocephin and change to Cipro Encourage patient to get up If he can start ambulating, eating normally, could possibly go home by the depending on his ambulation status. I let him know that. (2) Lower back pain, chronic Impression: MRI showed no evidence of discitis or osteomyelitis. There was evidence of mild to moderate canal stenosis from L4-L5 and L5-S1. There was also a right foraminal annular tear and disc bulge at L5-S1. We will continue Tylenol as needed for pain control. He will need outpatient follow-up with orthopedic or neurosurgery. Qualifiers: Chronicity: acute Back pain laterality: midline Sciatica presence: without sciatica Qualified Code(s): M54.50 - Low back pain, unspecified (3) Prostate cancer metastatic to intrapelvic lymph node Impression: We are continuing his home prednisone and are agreeable to him taking his home Zytiga (his will bring this in.) He will need outpatient follow-up with his oncologist once discharged. (4) Syncope, resolved Impression: This was likely due to the sepsis and hypotension he initially had. His echocardiogram revealed no significant valvular disease and he has been in sinus rhythm on telemetry. Qualifiers: Syncope type: unspecified Qualified Code(s): R55 - Syncope and collapse (5) Sepsis, resolved Impression: This appears to have resolved. He remains afebrile leukocytosis and a normal l actic acid. Qualifiers: Sepsis type: sepsis due to unspecified organism Sepsis acute organ dysfunction status: without acute organ dysfunction Qualified Code(s): A41.9 - Sepsis, unspecified organism (6) Hypoxia, resolved. Impression: This has resolved and was secondary to the sepsis.
[2021-08-08] MEDS: ACETAMINOPHEN 325 MG TABLET PO PRN (03:37)
[2021-08-08] MEDS: SODIUM CHLORIDE 0.9% 1,000 ML IV SCH (03:37)
[2021-08-08] MEDS: SODIUM CHLORIDE FLUSH 0.9% 10 ML SYRINGE IVP SCH ×2 (03:37→08:35)
[2021-08-08] MEDS: traMADol 50 MG TABLET PO PRN ×2 (03:37→09:31)
--- NOTE | 2021-08-08 07:10 | Discharge Plan ---
Discharge Plan Problem Reviewed?: Yes Disposition: Home, Self Care Condition: Stable Prescriptions: Ciprofloxacin [Cipro] 500 mg PO BID #26 tablet Diet: Regular Activity Restrictions: Activity as Tolerated Shower Restrictions: No Driving Restrictions: No Health Concerns: You presented to our emergency room because you had not been feeling very well for a few days. You're very sleepy, exhausted, and could barely make it to the bathroom. You had one episode of incontinence of stool because of it. You were dizzy, and shaking with chills. As you came back from the bathroom you passed out. You came to the emergency room with this and we found you to have a severe infection from E. coli. E. coli is a bacteria that is usually found in the bowel, gallbladder, prostate, or urinary tract. We did extensive evaluation of you and could not find any source of the E. coli but we have to assume it is associated with your metastatic prostate cancer diagnosis. You have responded very nicely to antibiotics for E. coli. Because the E. coli grew in your blood, you'll need to complete a total of 2 weeks of antibiotic therapy. Your last dose of antibiotic should be in the evening of August 25. We did evaluate you for other causes of passing out. Sometimes people have valvular heart disease, irregular heartbeats, or stroke. All those evaluations were negative for you. Plan of Treatment: 1. Complete antibiotic therapy with ciprofloxacin twice a day until August 25 2. Please take an [id number] probiotic. That keeps your bowel in better balance if you are on antibiotics. Take the probiotic twice a day until you finish the antibiotics. 3. Please let your Oncologist know that you had a urinary tract infection. Please establish yourself with a new primary care provider. You stated that it is really hard to get in to see the [facility] and that your previous provider there has retired. There is another provider in your area with [facility]. Their phone number is [phone]. They are accepting new patients. Care Goals: To return to baseline status that he had before illness Assessment: Patient states he will follow through with care plan and see his doctors No Smoking: If you smoke, Please STOP! Call for help.
--- NOTE | 2021-08-08 07:48 | DISCHARGE SUMMARY ---
Discharge Summary Admit Date: 08/01/21 Discharge Date: 08/08/21 Discharging Provider: Mikayla Graves MD Primary Care Provider: jennifer Dailey MD Code Status: Do Not Attempt Resuscitation Condition at Discharge: Stable Discharge Disposition: 01 Home, Self Care - DIAGNOSES Discharge Diagnoses with Status of Each Condition: 1. Sepsis 2. E. coli bacteremia 3. 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 Orthostatic syncope 5. Transient hypoxia 6. Migraine headache 7. Chronic back pain due to radiculopathy 8. Status post cystoscopy - HPI History of Present Illness: Patient is a 65-year-old male with medical history significant for metastatic prostate cancer who sees Dr Dailey at the [facility] clinic, hypertension and anemia who presented to the ED after a syncopal episode. He states that he has not been feeling well for the past couple of days. He has been sleeping a lot these past couple days as well. It has been difficult getting to the bathroom. He reported dizziness, chills and shaking uncontrollably (?rigors). H Today it appears the patient had a syncopal episode but had no recollection of it. In the ED he had an oxygen saturation of 87% on room air and was tachycardic with heart rate in the 110's, febrile with a temperature of 38.1 C and had a lactic acid of 3.6. He was presented for admission for further treatment. At bedside he denies chest pain but reports mild dyspnea. He also denies abdominal pain or vomiting. He was nauseous to previously but this seems to have resolved. There is no rash or redness on his body. 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 Multilevel facet arthropathy and degenerative changes. Canal stenosis is mild to moderate at L4-L5, mild at L5-S1. Multilevel foraminal narrowing. Right foraminal annulus tear plus disc bulge at L5-S1. Chest x-ray with mild increased vascularity. Head CT without acute intracranial process Chest thorax CT angiogram without pulmonary emboli. Heart is enlarged without pericardial effusion. No mediastinal or hilar adenopathy. Bovine arch is incidentally noted. Bones and chest wall without suspicious bony lesions. Visualized upper abdominal organs appear normal. There are no consolidation or effusion in the lungs. Blood cultures on August 01 are both positive for E. coli, pansensitive. Follow-up blood cultures on August 02 and August 03 are negative and without growth. Urine culture is without growth. - HOSPITAL COURSE Hospital Course: The patient presented with sepsis criteria and was hypotensive, tachycardic, and felt utterly miserable. Several times he stated that if he had a gun he would have "shot himself". It took several days for his blood pressure to gradually get better, and with that improved alertness, improved mentation, and less depression. His main complaint was back pain. In order to make sure he did not have an epidural abscess MRI was done of the lumbar spine. No epidural abscess. But findings of ruptured disc seen. He was initially started on Rocephin. The cultures indicated the E. coli was pansensitive. We discussed this case with infectious disease on the Med Con line at [facility]. We went over all of his imaging and review of systems. In this case, we won't find the source with the current work up and he didn't recommend doing more studies but to treat the information we had. He was changed to oral cipro once he was stable and there was no change. He is to go home and complete antibiotics for total of 14 days. That means he was stop antibiotics on August 25 in the evening. The patient also had a migraine headache. He states that at home he has a 2-year-old bottle of Fioricet. That usually works for him. He received Fioricet here and had resolution of his headache. At discharge temperature was 36.8. Heart rate 75. Blood pressure 137/67. Respirations 20. 95% on room air. He was alert, oriented to person place and time. Normal lung, cardiac, abdominal exam. Ambulating in the room. Eating 25 to 75% of his food. Greater than 30 minutes was spent coordinating discharge. I did express to the patient my desire that he establish himself with a new primary care provider. All of his primary care providers have retired. He currently sees his oncologist in follow-up and I recommended that he add another provider to his list. In his area, [facility] is accepting new patients. [facility] have already been tried but he can't get an appointment. - ALLERGIES Allergies/Adverse Reactions: Allergies Allergy/AdvReac Type Severity Reaction Status Date / Time No Known Drug Allergies Allergy Verified 08/01/21 14:56 - MEDICATIONS Home Medications: Ambulatory Orders Medication Instructions Recorded Confirmed Abiraterone Acetate [Zytiga] 1,000 mg PO QPM 12/13/18 08/05/21 Butalb/Acetaminophen/Caffeine 1 each PO Q4HR PRN 12/13/18 08/03/21 [Tijqkb-Inajrmyp-Harx 50-325-40] Leuprolide Acetate [Lupron Depot] 22.5 mg IM Q3M 12/13/18 08/03/21 predniSONE [Prednisone] 5 mg PO BID 12/13/18 08/03/21 lisinopriL [Prinivil] 10 mg PO DAILY 03/12/20 08/03/21 Ascorbic Acid [Vitamin C] 1,000 mg PO DAILY 08/03/21 08/03/21 Cetirizine [ZyrTEC] 10 mg PO QPM 08/03/21 08/03/21 Cholecalciferol (Vitamin D3) 50 mcg PO DAILY 08/03/21 08/03/21 [Vitamin D3] Loratadine [Allergy Relief] 10 mg PO DAILY 08/03/21 08/03/21 Zinc Gluconate [Zinc] 50 mg PO DAILY 08/03/21 08/03/21 Ciprofloxacin [Cipro] 500 mg PO BID #26 tablet 08/08/21 - LABS Result Diagrams: 08/06/21 04:19 08/06/21 04:19 - SEPSIS Possible source of Sepsis: Unknown Sepsis Criteria: Metabolic: lactate > 2 mmol/L
[2021-08-08] MEDS: BUTALB/ACETAM/CAFF 50/325/40MG TABLET PO PRN (07:58)
[2021-08-08 08:00] VITALS: BP 144/78
[2021-08-08] MEDS: ENOXAPARIN 40 MG/0.4 ML SYRINGE SUBQ SCH (08:32)
[2021-08-08] MEDS: polyethylene glycoL 3350 17 GM PACKET PO SCH (08:32)
[2021-08-08] MEDS: CIPROFLOXACIN 250 MG TABLET PO SCH (08:32)
[2021-08-08] MEDS: LORATADINE 10 MG TABLET PO SCH (08:32)
[2021-08-08] MEDS: predniSONE 5 MG TABLET PO SCH (08:35)
== END 2021-08-08 11:25 | disposition home or self-care (01) | DRG 872 ==
LOC: EDUNIT# → ED 14:44 → MS3 18:11
PROVIDERS: ADMIT Internal Medicine; ATTEND Specialist
DX: A41.9 Sepsis, unspecified organism (principal); A41.51 Sepsis due to Escherichia coli [E. coli]; R55 Syncope and collapse; C77.5 Secondary and unspecified malignant neoplasm of intrapelvic lymph nodes; C79.9 Secondary malignant neoplasm of unspecified site; Z20.822 Contact with and (suspected) exposure to COVID-19; C61 Malignant neoplasm of prostate; R09.02 Hypoxemia; I95.1 Orthostatic hypotension; G43.909 Migraine, unspecified, not intractable, without status migrainosus; G89.29 Other chronic pain; M51.16 Intervertebral disc disorders with radiculopathy, lumbar region; M48.07 Spinal stenosis, lumbosacral region; R53.81 Other malaise; I10 Essential (primary) hypertension; D64.9 Anemia, unspecified; F32.9 Major depressive disorder, single episode, unspecified; Z66 Do not resuscitate; Z79.52 Long term (current) use of systemic steroids; Z79.899 Other long term (current) drug therapy; Z92.3 Personal history of irradiation
CPT/HCPCS: 36415; 70450; 71045; 71275; 72158; 74177; 80048; 80053; 81001; 83605; 83690; 83735; 83880; 84153; 84154; 84484; 85025; 85651; 86140; 87040; 87086; 87150; 87181; 87631; 93005; 93306; 96360; 99283; 99285; A9270; A9585; J1650; J3370; J7120; J7512; Q9967; 0202U; 81003

== ENCOUNTER 2022-07-24 08:00 | Outpatient (CLI) | payer MEDICARE, OTHER ==
[2022-07-24 14:38] LABS: BILIRUBIN,URINE NEGATIVE (NEGATIVE); GLUCOSE, URINE (UA) NEGATIVE (NEGATIVE); KETONES,URINE (UA) TRACE mg/dL (NEGATIVE); LEUKOCYTE ESTERASE, URINE TRACE (NEGATIVE); NITRITE,URINE NEGATIVE (NEGATIVE); OCCULT BLOOD,URINE LARGE (NEGATIVE); PH,URINE 5.5 PH (5.0-7.5); PROTEIN,URINE 30 mg/dL (NEGATIVE); UROBILINOGEN,URINE 0.2 (NORMAL) E.U./dL (NORMAL)
[2022-07-24 14:41] LABS: CLARITY,URINE BLOODY (CLEAR)
[2022-07-24 14:48] LABS: BACTERIA,URINE Moderate /HPF (None Seen); RBC,URINE TNTC /HPF (0-5); SQUAMOUS EPITHELIAL CELL,UR FEW Squamous (<= Few)
== END 2022-07-24 23:59 | disposition home or self-care (01) ==
LOC: LAB.S 08:00
PROVIDERS: ATTEND Emergency Medicine
DX: R30.0 Dysuria (principal)
CPT/HCPCS: 81001; 87086

== ENCOUNTER 2022-07-24 21:54 | Emergency (ER) | payer MEDICARE, OTHER ==
[2022-07-24 23:01] LABS: GLUCOSE, URINE (UA) NEGATIVE (NEGATIVE); KETONES,URINE (UA) NEGATIVE (NEGATIVE); LEUKOCYTE ESTERASE, URINE NEGATIVE (NEGATIVE); NITRITE,URINE NEGATIVE (NEGATIVE); OCCULT BLOOD,URINE LARGE (NEGATIVE); PROTEIN,URINE 100 mg/dL (NEGATIVE); UROBILINOGEN,URINE 0.2 (NORMAL) E.U./dL (NORMAL)
[2022-07-24 23:04] LABS: BASOPHILS % (AUTO) 0.4 %; EOSINOPHILS # (AUTO) 0.1 10^3/uL (0.0-0.7); EOSINOPHILS % (AUTO) 0.5 %; HCT - HEMATOCRIT 39.8 % (42.0-52.0); HGB - HEMOGLOBIN 13.5 g/dL (14.0-18.0); LYMPHOCYTES # (AUTO) 2.2 10^3/uL (1.5-3.5); LYMPHOCYTES % (AUTO) 19.9 %; MEAN CORPUSCULAR HEMOGLOBIN 32.9 pg (27.0-31.0); MEAN CORPUSCULAR HGB CONC 33.9 g/dL (32.0-36.0); MEAN CORPUSCULAR VOLUME 97.1 fL (80.0-94.0); MEAN PLATELET VOLUME 9.2 fL (7.4-11.4); MONOCYTES # (AUTO) 0.9 10^3/uL (0.0-1.0); MONOCYTES % (AUTO) 7.8 %; NEUTROPHILS # (AUTO) 7.8 10^3/uL (1.5-6.6); NEUTROPHILS % (AUTO) 70.9 %; PLT - PLATELET COUNT 222 10^3/uL (130-450); RED CELL DISTRIBUTION WIDTH 12.3 % (12.0-15.0)
[2022-07-24 23:07] LABS: BILIRUBIN,URINE NEGATIVE (NEGATIVE); CLARITY,URINE CLOUDY (CLEAR); ICTOTEST,URINE NEGATIVE
[2022-07-24 23:08] LABS: BACTERIA,URINE Moderate /HPF (None Seen); RBC,URINE TNTC /HPF (0-5); SQUAMOUS EPITHELIAL CELL,UR NONE SEEN (<= Few)
[2022-07-24 23:20] LABS: ALBUMIN 4.2 g/dL (3.2-5.5); ALBUMIN/GLOBULIN RATIO 1.6 (1.0-2.2); BILIRUBIN,TOTAL 0.6 mg/dL (0.2-1.0); CALCIUM 9.1 mg/dL (8.5-10.3); POTASSIUM 3.5 mmol/L (3.5-5.0); TOTAL PROTEIN 6.9 g/dL (6.7-8.2)
--- NOTE | 2022-07-25 00:08 | ED Physician Documentation ---
History of Present Illness - Stated complaint Stated Complaint: UNABLE TO URINATE - Chief complaint Chief Complaint: General - History obtained from History obtained from: Patient - Additonal information Additional information: Patient is a 66-year-old male presenting for evaluation of difficulty with urination today.He does have a previous history of prostate cancer and still follows with an oncologist here on [place]. He has been having a right flank pain intermittently since last week and went to the walk-in clinic. It he was told he might have a kidney stone. No imaging or labs were done.He has not had pain for a few days. He has only been able to get a small amount of urine out today. He has noted that is blood-tinged.He denies fever, chest pain, difficulty breathing, nausea, vomiting, current abdominal pain.He does not take a blood thinner. Review of Systems Constitutional: denies: Fever Nose: denies: Congestion Cardiac: denies: Chest pain / pressure Respiratory: denies: Dyspnea GI: denies: Abdominal Pain : reports: Unable to Void Musculoskeletal: reports: Back pain Neurologic: denies: Headache PD PAST MEDICAL HISTORY - Past Medical History Cardiovascular: Hypertension Respiratory: None Neuro: Other Endocrine/Autoimmune: None GI: None : Other (Prostate cancer with mets to lymph nodes.) HEENT: None Psych: Depression, Anxiety Musculoskeletal: None Derm: None - Past Surgical History Past Surgical History: Yes General: Cholecystectomy, 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 (Seeds placed in the prostate for cancer treatment.) - Present Medications Home Medications: Ambulatory Orders Medication Instructions Recorded Confirmed Abiraterone Acetate [Zytiga] 1,000 mg PO QPM 12/13/18 06/02/22 Butalb/Acetaminophen/Caffeine 1 each PO Q4HR PRN 12/13/18 06/02/22 [Ibijie-Ansyeqdi-Rdlu 50-325-40] Leuprolide Acetate [Lupron Depot] 22.5 mg IM Q3M 12/13/18 06/02/22 predniSONE [Prednisone] 5 mg PO BID 12/13/18 06/02/22 lisinopriL [Prinivil] 10 mg PO DAILY 03/12/20 06/02/22 Ascorbic Acid [Vitamin C] 1,000 mg PO DAILY 08/03/21 06/02/22 Cetirizine [ZyrTEC] 10 mg PO QPM 08/03/21 06/02/22 Cholecalciferol (Vitamin D3) 50 mcg PO DAILY 08/03/21 06/02/22 [Vitamin D3] Loratadine [Allergy Relief] 10 mg PO DAILY 08/03/21 06/02/22 Zinc Gluconate [Zinc] 50 mg PO DAILY 08/03/21 06/02/22 Ciprofloxacin [Cipro] 500 mg PO BID #26 tablet 08/08/21 06/02/22 - Allergies Allergies/Adverse Reactions: Allergies Allergy/AdvReac Type Severity Reaction Status Date / Time No Known Drug Allergies Allergy Verified 07/24/22 22:10 - Social History Does the pt smoke?: No Smoking Status: Never smoker - POLST Patient has POLST: No POLST Status: DNR PD ED PE NORMAL - General General: Alert and oriented X 3, No acute distress, Well developed/nourished - HEENT HEENT: Atraumatic, Moist mucous membranes - Neck Neck: Supple, no meningeal sign - Cardiac Cardiac: RRR, Strong equal pulses - Respiratory Respiratory: No respiratory distress, Clear bilaterally - Abdomen Abdomen: Normal bowel sounds, Soft, Non tender, Non distended - Male Male : Other (Perdomo catheter in place with racheal-colored urine, no clots) - Back Back: No CVA TTP - Derm Derm: Warm and dry - Extremities Extremities: No edema - Neuro Neuro: Normal speech Results - Vitals Vitals: Vital Signs - 24 hr 07/24/22 07/25/22 22:07 01:30 Temperature 36.2 C L 37.3 C Heart Rate 92 72 Respiratory 18 16 Rate Blood Pressure 155/91 H 105/70 O2 Saturation 100 100 Oxygen O2 Source Room air - Labs Labs: Laboratory Tests 07/24/22 07/24/22 07/24/22 22:40 22:53 22:53 WBC 11.0 H RBC 4.10 L Hgb 13.5 L Hct 39.8 L MCV 97.1 H MCH 32.9 H MCHC 33.9 RDW 12.3 Plt Count 222 MPV 9.2 Neut # (Auto) 7.8 H Lymph # (Auto) 2.2 Traill # (Auto) 0.9 Eos # (Auto) 0.1 Baso # (Auto) 0.0 Absolute Nucleated RBC 0.00 Nucleated RBC % 0.0 Sodium 135 Potassium 3.5 Chloride 100 L Carbon Dioxide 24 Anion Gap 11.0 BUN 24 H Creatinine 1.0 Estimated GFR (MDRD) 74 L Glucose 122 H Calcium 9.1 Total Bilirubin 0.6 AST 19 ALT 21 Alkaline Phosphatase 73 Total Protein 6.9 Albumin 4.2 Globulin 2.7 Albumin/Globulin Ratio 1.6 Urine Color BROWN Urine Clarity CLOUDY Urine pH 6.0 Ur Specific [place] 1.025 Urine Protein 100 H Urine Glucose (UA) NEGATIVE Urine Ketones NEGATIVE Urine Occult Blood LARGE H Urine Nitrite NEGATIVE Urine Bilirubin NEGATIVE Urine Urobilinogen 0.2 (NORMAL) Ur Leukocyte Esterase NEGATIVE Urine RBC TNTC H Urine WBC 4-5 Ur Squamous Epith Cells NONE SEEN Urine Bacteria Moderate H Ur Microscopic Review INDICATED Urine Culture Comments NOT INDICATED PD MEDICAL DECISION MAKING - ED course Complexity details: reviewed results, re-evaluated patient, d/w patient ED course: Patient with difficulty urinating and hematuria. A bladder scan with close to 500 cc. A Perdomo catheter inserted which initially was dark red-tinged but cleared up. Labs reviewed. CT scan without contrast ordered given patient's history of right flank pain. Stone seen in right kidney but none in the ureter and no obstruction. Patient Is feeling better here. UA and CT are concerning for infection. Patient is already been started on ciprofloxacin. He did not tolerate Flomax in the past as it caused him dizziness. He does have a primary care doctor. He is counseled on need for close follow-up with PCP as well as referral to a urologist to work-up his hematuria. Patient counseled on concerning symptoms to return for. 0120 - Patient has been resting comfortably. Reviewed CT findings with him. He reports he started taking ciprofloxacin yesterday from a prescription the urgent care gave him. He is familiar with a Perdomo catheter. He does not currently have a urologist but will follow up with his primary care doctor. He is advised on concerning symptoms to return for. Departure - Departure Disposition: 01 Home, Self Care Clinical Impression: Acute urinary retention Hematuria Qualifiers: Hematuria type: gross Qualified Code(s): R31.0 - Gross hematuria Condition: Stable Instructions: ED Hematuria, ED Retention Urinary Male Comments: A Perdomo catheter was inserted to your bladder as you were having difficulty urinating. This should be kept in for about a week. I would recommend close follow-up with your primary care doctor to discuss having it removed as well as a referral to a urologist. You should have further evaluation as to why you have blood in your urine. A CT scan shows stones in the right kidney but no signs of stones through the ureter Or in the bladder. There are also signs of an infection in your urine. I would continue with the ciprofloxacin that you are prescribed from the urgent care. If you have any worsening symptoms such as increased blood in your catheter, your catheter not draining, increased pain or any concerns please return to the ER. IMPRESSION: 1. Clustered nonobstructing stones within the right kidney without evidence of obstructive uropathy. 2. Perdomo catheter within a partially distended urinary bladder. Mild fat stranding along the bladder wall may reflect a mild cystitis. Recommend correlation with urinalysis. Discharge Date/Time: 07/25/22 01:36
--- NOTE | 2022-07-25 01:03 | CT Report ---
PROCEDURE: ABDOMEN/PELVIS WO INDICATIONS: flank pain on R/difficulty urinating TECHNIQUE: Noncontrast 5 mm thick sections acquired from the diaphragms to the symphysis. 5 mm coronal and sagi ttal reformats were then performed. For radiation dose reduction, the following was used: automated exposure control, adjustment of mA and/or kV according to patient size. COMPARISON: CT abdomen pelvis 04/23/2022. FINDINGS: Image quality: Excellent. Lung bases: There is mild dependant atelectasis. Heart: Heart is normal in size. URINARY: Right Kidney and Ureter: There are multiple clustered nonobstructing stones within the right kidney measuring up to approximately 0.7 cm in transverse dimension. These demonstrate attenuation values of approximately 800-900 Hounsfield units. There is mild nonspecific perinephric stranding. No hydroure ter. Left Kidney and Ureter: No stones or hydronephrosis.There is mild nonspecific perinephric strandin g. No hydroureter. Bladder:There is a Perdomo catheter within a partially distended urinary bladder. There is mild associ ated fat stranding along the bladder wall. No stones.Multiple radiation seeds are present within the prostate. ABDOMEN: Liver: Noncontrast evaluation of the liver demonstrates no discrete mass. Gallbladder:Surgically absent. Biliary ducts: No biliary ductal dilatation. Pancreas: Unremarkable. Spleen: Normal in size. Adrenal Glands: No adrenal nodules. Stomach and Bowel: Stomach, small bowel loops, and colon are normal in caliber and wall thickness. T he appendix is normal in appearance. There is colonic diverticulosis without acute diverticulitis. Peritoneum: No abnormal intraperitoneal fluid. No free air. Ventral Wall: No hernia. Abdominal Nodes: No retroperitoneal or mesenteric adenopathy by size criteria. Vessels: Aorta and inferior vena cava are normal in size. PELVIS: Pelvic Organs: Unremarkable. Pelvic Nodes: No enlarged lymph nodes. Miscellaneous: No inguinal hernias identified. Bones: Visualized osseous structures demonstrate no suspicious focal lesions. IMPRESSION: 1. Clustered nonobstructing stones within the right kidney without evidence of obstructive uropathy. 2. Perdomo catheter within a partially distended urinary bladder. Mild fat stranding along the bladder wall may reflect a mild cystitis. Recommend correlation with urinalysis. Reviewed by: Mario Reynolds MD on 07/25/2022 1:10 AM PDT Approved by: Mario Reynolds MD on 07/25/2022 1:10 AM PDT Station ID: [id number]
[2022-07-25] MEDS ORDERED: cefTRIAXone 1 GM VIAL IVP STA (01:10)
[2022-07-25 01:36] VITALS: BP 105/70
== END 2022-07-25 01:36 | disposition home or self-care (01) ==
LOC: ED 21:54
DX: R31.0 Gross hematuria (principal); R33.9 Retention of urine, unspecified; R30.0 Dysuria; T83.091A Other mechanical complication of indwelling urethral catheter, initial encounter; Z66 Do not resuscitate
CPT/HCPCS: 36415; 51702; 51798; 80053; 81001; 81003; 85025; 87086; 99281; 99282; 99284

== ENCOUNTER 2022-07-25 11:35 | Emergency (ER) | payer MEDICARE, OTHER ==
[2022-07-25 11:52] VITALS: BP 157/82
--- NOTE | 2022-07-25 12:06 | ED Physician Documentation ---
History of Present Illness - Stated complaint Stated Complaint: CATH BLOCKED - Chief complaint Chief Complaint: Abd Pain - History obtained from History obtained from: Patient - Additonal information Additional information: 66-year-old gentleman with history of prostate cancer had a Perdomo placed yesterday for hematuria and retention, now no output from the Perdomo for several hours with suprapubic pressure. 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 (Seeds placed in the prostate for cancer treatment.) - Present Medications Home Medications: Ambulatory Orders Medication Instructions Recorded Confirmed Abiraterone Acetate [Zytiga] 1,000 mg PO QPM 12/13/18 06/02/22 Butalb/Acetaminophen/Caffeine 1 each PO Q4HR PRN 12/13/18 06/02/22 [Uzvypb-Rcyimxuf-Igie 50-325-40] Leuprolide Acetate [Lupron Depot] 22.5 mg IM Q3M 12/13/18 06/02/22 predniSONE [Prednisone] 5 mg PO BID 12/13/18 06/02/22 lisinopriL [Prinivil] 10 mg PO DAILY 03/12/20 06/02/22 Ascorbic Acid [Vitamin C] 1,000 mg PO DAILY 08/03/21 06/02/22 Cetirizine [ZyrTEC] 10 mg PO QPM 08/03/21 06/02/22 Cholecalciferol (Vitamin D3) 50 mcg PO DAILY 08/03/21 06/02/22 [Vitamin D3] Loratadine [Allergy Relief] 10 mg PO DAILY 08/03/21 06/02/22 Zinc Gluconate [Zinc] 50 mg PO DAILY 08/03/21 06/02/22 Ciprofloxacin [Cipro] 500 mg PO BID #26 tablet 08/08/21 06/02/22 - Allergies Allergies/Adverse Reactions: Allergies Allergy/AdvReac Type Severity Reaction Status Date / Time No Known Drug Allergies Allergy Verified 07/24/22 22:10 - Social History Does the pt smoke?: No Smoking Status: Never smoker - POLST Patient has POLST: No POLST Status: DNR PD ED PE NORMAL - Vitals Vital signs reviewed: Yes - General General: Alert and oriented X 3, No acute distress - Abdomen Abdomen: Normal bowel sounds, Soft, Non tender - Neuro Neuro: Alert and oriented X 3, Normal speech Results - Vitals Vitals: Vital Signs - 24 hr 07/25/22 11:48 Temperature 37.0 C Heart Rate 75 Respiratory 16 Rate Blood Pressure 157/82 H O2 Saturation 99 Oxygen O2 Source Room air PD MEDICAL DECISION MAKING - ED course ED course: I was able to hand irrigate the Perdomo with multiple clots until clear with resolution of his symptoms. Departure - Departure Disposition: 01 Home, Self Care Clinical Impression: Complication, blocked Perdomo catheter Qualifiers: Encounter type: initial encounter Qualified Code(s): T83.091A - Other mechanical complication of indwelling urethral catheter, initial encounter Condition: Good Record reviewed to determine appropriate education?: Yes Instructions: ED Catheter Care Perdomo Comments: FFollow-up with your urologist, next billable appointment. Otherwise follow the instructions Dr. Almazan gave you yesterday. Return if worse.
== END 2022-07-25 12:20 | disposition home or self-care (01) ==
LOC: ED 11:35
DX: T83.091A Other mechanical complication of indwelling urethral catheter, initial encounter (principal)
CPT/HCPCS: 99281; 99282

== ENCOUNTER 2023-06-14 09:53 | Outpatient (CLI) | payer MEDICARE, OTHER ==
[2023-06-14 15:44] LABS: CHOL/HDL RATIO 5.5 (<5.0); CHOLESTEROL 214 mg/dL; HDL CHOLESTEROL 39 mg/dL; TRIGLYCERIDES 488 mg/dL (48-352)
[2023-06-14 16:15] LABS: THYROID STIMULATING HORMONE 2.48 uIU/mL (0.34-5.60)
[2023-06-14 17:16] LABS: LDL CHOLESTEROL,DIRECT 98 mg/dL (75-193); LDLD/HDL RATIO 2.5 (<3.6)
== END 2023-06-14 09:54 | disposition home or self-care (01) ==
LOC: LAB.S 09:53
PROVIDERS: ATTEND Nurse Practitioner Acute Care
DX: Z13.220 Encounter for screening for lipoid disorders (principal); Z13.29 Encounter for screening for other suspected endocrine disorder; N18.2 Chronic kidney disease, stage 2 (mild); D64.9 Anemia, unspecified
CPT/HCPCS: 36415; 80061; 83721; 84443

== ENCOUNTER 2023-08-20 12:30 | Emergency (ER) | payer MEDICARE, OTHER ==
--- NOTE | 2023-08-20 12:43 | XRAY Report ---
PROCEDURE: Chest 1 View X-Ray INDICATIONS: dyspnea TECHNIQUE: One view of the chest was acquired. COMPARISON: 08/01/2021 FINDINGS: Surgical changes and devices: None. Lungs and pleura: No pleural effusions or pneumothorax. Lungs are clear. Mediastinum: Mediastinal contours appear normal. Heart size is normal. Bones and chest wall: No suspicious bony lesions. Overlying soft tissues appear unremarkable. IMPRESSION: No acute cardiopulmonary process. Reviewed by: Ponce Babcock on 08/20/2023 12:41 PM [facility] Approved by: Ponce Babcock on 08/20/2023 12:41 PM [facility] Station ID: [id number]
[2023-08-20 13:03] LABS: BASOPHILS # (AUTO) 0.1 10^3/uL (0.0-0.1); BASOPHILS % (AUTO) 0.7 %; EOSINOPHILS # (AUTO) 0.3 10^3/uL (0.0-0.7); EOSINOPHILS % (AUTO) 3.3 %; HCT - HEMATOCRIT 41.4 % (42.0-52.0); HGB - HEMOGLOBIN 13.7 g/dL (14.0-18.0); LYMPHOCYTES % (AUTO) 25.9 %; MEAN CORPUSCULAR HEMOGLOBIN 31.6 pg (27.0-31.0); MEAN CORPUSCULAR HGB CONC 33.1 g/dL (32.0-36.0); MEAN CORPUSCULAR VOLUME 95.4 fL (80.0-94.0); MEAN PLATELET VOLUME 9.1 fL (7.4-11.4); MONOCYTES # (AUTO) 0.5 10^3/uL (0.0-1.0); MONOCYTES % (AUTO) 6.2 %; NEUTROPHILS # (AUTO) 4.8 10^3/uL (1.5-6.6); NEUTROPHILS % (AUTO) 63.6 %; PLT - PLATELET COUNT 244 10^3/uL (130-450); RED BLOOD COUNT 4.34 10^6/uL (4.70-6.10); RED CELL DISTRIBUTION WIDTH 12.1 % (12.0-15.0); WHITE BLOOD COUNT 7.6 x10^3/uL (4.8-10.8)
[2023-08-20 13:17] LABS: ALBUMIN 4.8 g/dL (3.2-5.5); ALBUMIN/GLOBULIN RATIO 2.5 (1.0-2.2); BILIRUBIN,TOTAL 0.5 mg/dL (0.2-1.0); CALCIUM 10.1 mg/dL (8.5-10.3); CREATININE 0.9 mg/dL (0.6-1.3); POTASSIUM 4.3 mmol/L (3.5-4.5); TOTAL PROTEIN 6.7 g/dL (6.4-8.9)
[2023-08-20 13:25] VITALS: BP 134/90; O2SAT 100
[2023-08-20 13:25] LABS: TROPONIN I HIGH SENSITIVITY 2.9 ng/L (2.3-19.7)
--- NOTE | 2023-08-20 15:02 | ED Physician Documentation ---
PD HPI DYSPNEA - Stated complaint Stated Complaint: SOA,CONGESTION - Chief complaint Chief Complaint: Resp - History obtained from History obtained from: Patient - Additional information Additional information: 67-year-old gentleman with history of prostate cancer. Most recently treated with Zytiga and prednisone and after a prolonged taper stopped the prednisone about 2 weeks ago. About 3 weeks ago had a cold which has gotten better but over the last week he has had exertional dyspnea. He denies chest pain, orthopnea, pedal edema, or calf pain. Went to the walk-in clinic and sent here for further evaluation and treatment given the dyspnea on exertion and age. 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 CENTERED CARE SPECIALIST: Other (Seeds placed in the prostate for cancer treatment.) - Present Medications Home Medications: Ambulatory Orders Medication Instructions Recorded Confirmed Butalb/Acetaminophen/Caffeine 1 each PO Q4HR PRN 12/13/18 06/10/23 [Inkuet-Dswzendr-Ucfg 50-325-40] Leuprolide Acetate [Lupron Depot] 22.5 mg IM Q3M 12/13/18 06/10/23 lisinopriL [Prinivil] 10 mg PO DAILY 03/12/20 06/10/23 Ascorbic Acid [Vitamin C] 1,000 mg PO DAILY 08/03/21 06/10/23 Cetirizine [ZyrTEC] 10 mg PO QPM 08/03/21 06/10/23 Cholecalciferol (Vitamin D3) 50 mcg PO DAILY 08/03/21 06/10/23 [Vitamin D3] Loratadine [Allergy Relief] 10 mg PO DAILY 08/03/21 06/10/23 Zinc Gluconate [Zinc] 50 mg PO DAILY 08/03/21 06/10/23 Ciprofloxacin [Cipro] 500 mg PO BID #26 tablet 08/08/21 06/10/23 - Allergies Allergies/Adverse Reactions: Allergies Allergy/AdvReac Type Severity Reaction Status Date / Time No Known Drug Allergies Allergy Verified 07/24/22 22:10 - Social History Does the pt smoke?: No Smoking Status: Never smoker - POLST Patient has POLST: No POLST Status: DNR PD ED PE NORMAL - Vitals Vital signs reviewed: Yes - General General: Alert and oriented X 3, No acute distress - HEENT HEENT: PERRL, EOMI - Neck Neck: Supple, no meningeal sign, No bony TTP - Cardiac Cardiac: RRR, No murmur - Respiratory Respiratory: No respiratory distress, Clear bilaterally - Abdomen Abdomen: Normal bowel sounds, Soft, Non tender - Back Back: No CVA TTP, No spinal TTP - Derm Derm: Normal color, Warm and dry - Extremities Extremities: No edema, No calf tenderness / cord - Neuro Neuro: Alert and oriented X 3, Normal speech Results - Vitals Vitals: Vital Signs - 24 hr 08/20/23 13:14 Temperature 36 C L Heart Rate 79 Respiratory 20 Rate Blood Pressure 134/90 H O2 Saturation 100 Oxygen O2 Source Room air - EKG (time done) 1317 EKG releavant findings:: EKG personally interpreted by author of this note. Relevant findings are: Rate: Rate (enter#) (63) Rhythm: NSR [place]: Normal Intervals: Normal NE QRS: Normal Ischemia: Normal ST segments Computer interpretation: Agree with computer - Labs Labs: Laboratory Tests 08/20/23 08/20/23 08/20/23 12:58 12:58 12:58 WBC 7.6 RBC 4.34 L Hgb 13.7 L Hct 41.4 L MCV 95.4 H MCH 31.6 H MCHC 33.1 RDW 12.1 Plt Count 244 MPV 9.1 Neut # (Auto) 4.8 Lymph # (Auto) 2.0 [place] # (Auto) 0.5 Eos # (Auto) 0.3 Baso # (Auto) 0.1 Absolute Nucleated RBC 0.00 Nucleated RBC % 0.0 Sodium 138 Potassium 4.3 Chloride 104 Carbon Dioxide 27 Anion Gap 7.0 BUN 17 Creatinine 0.9 Estimated GFR (MDRD) 84 L Glucose 111 H Calcium 10.1 Total Bilirubin 0.5 AST 29 ALT 45 Alkaline Phosphatase 101 Troponin I High Sens 2.9 B-Natriuretic Peptide 44 Total Protein 6.7 Albumin 4.8 Globulin 1.9 L Albumin/Globulin Ratio 2.5 H Lipase 22 PD Medical Decision Making - ED course ED course: 67-year-old gentleman presents with dyspnea on exertion going on for about a week, starting after ceasing prednisone dosing that he was on long-term. Work- up in the emergency department consisted of an EKG which was unremarkable without signs of ischemia. Clear chest x-ray. And labs notable for normal troponin and BNP, so no sign of active cardiac ischemia or CHF, he does have v barrera mild anemia which is at a level that I would not expect to be symptomatic. Given the association with the stopping of the prednisone recommend that he restart at a very low dose for a time and see if that is helpful and follow-up stress testing if that is not helpful. Departure - Departure Disposition: 01 Home, Self Care Clinical Impression: Dyspnea Qualifiers: Dyspnea type: dyspnea on exertion Qualified Code(s): R06.09 - Other forms of dyspnea Condition: Good Record reviewed to determine appropriate education?: Yes Instructions: ED Dyspnea Shortness of Breath Comments: As discussed, the work-up in the emergency department was fairly normal/negative with no signs of ischemic heart disease or CHF or pneumonia. Seems reasonable to start your prednisone again at a very low dose and see if that is helpful. And then slowly taper off again. Would recommend 2.5 to 5 mg a day for a couple days and then maybe 2.5 mg for a week and then maybe 2.5 milligrams every other day for a week. If restarting the prednisone does not help with the shortness of breath, perfectly reasonable to follow-up with your primary care physician and discuss stress testing.
== END 2023-08-20 15:39 | disposition home or self-care (01) ==
LOC: ED 12:30
DX: R06.09 Other forms of dyspnea (principal); D64.9 Anemia, unspecified; Z66 Do not resuscitate
CPT/HCPCS: 36415; 80053; 83690; 83880; 84484; 85025; 93005; 99284

== ENCOUNTER 2023-10-15 08:00 | Outpatient (CLI) | payer MEDICARE, OTHER ==
[2023-10-15 15:45] LABS: BILIRUBIN,URINE NEGATIVE (NEGATIVE); GLUCOSE, URINE (UA) NEGATIVE (NEGATIVE); KETONES,URINE (UA) NEGATIVE (NEGATIVE); LEUKOCYTE ESTERASE, URINE NEGATIVE (NEGATIVE); NITRITE,URINE NEGATIVE (NEGATIVE); OCCULT BLOOD,URINE TRACE-INTA (NEGATIVE); PH,URINE 5.5 PH (5.0-7.5); PROTEIN,URINE 30 mg/dL (NEGATIVE); UROBILINOGEN,URINE 0.2 (NORMAL) E.U./dL (NORMAL)
[2023-10-15 15:59] LABS: BACTERIA,URINE Rare /HPF (None Seen); CLARITY,URINE CLEAR (CLEAR); RBC,URINE 0-5 /HPF (0-5); SQUAMOUS EPITHELIAL CELL,UR FEW Squamous (<= Few); WBC,URINE 0-3 /HPF (0-3)
== END 2023-10-15 23:59 | disposition home or self-care (01) ==
LOC: LAB.S 08:00
PROVIDERS: ATTEND Emergency Medicine
DX: R30.0 Dysuria (principal)
CPT/HCPCS: 81001; 87086

== ENCOUNTER 2023-11-09 08:00 | Outpatient (CLI) | payer MEDICARE, OTHER | END 2023-11-09 23:59 | disposition home or self-care (01) | LOC: LAB.S 08:00 | PROVIDERS: ATTEND Registered Nurse | DX: N20.0 Calculus of kidney (principal); R31.9 Hematuria, unspecified; N28.89 Other specified disorders of kidney and ureter | CPT/HCPCS: 87086 ==

== ENCOUNTER 2023-11-17 08:00 | Outpatient (CLI) | payer MEDICARE, OTHER ==
[2023-11-17 16:16] LABS: BILIRUBIN,URINE NEGATIVE (NEGATIVE); CLARITY,URINE CLEAR (CLEAR); GLUCOSE, URINE (UA) NEGATIVE (NEGATIVE); KETONES,URINE (UA) NEGATIVE (NEGATIVE); LEUKOCYTE ESTERASE, URINE NEGATIVE (NEGATIVE); NITRITE,URINE NEGATIVE (NEGATIVE); OCCULT BLOOD,URINE TRACE-INTA (NEGATIVE); PROTEIN,URINE NEGATIVE (NEGATIVE); UROBILINOGEN,URINE 0.2 (NORMAL) E.U./dL (NORMAL)
[2023-11-17 16:33] LABS: BACTERIA,URINE None Seen /HPF (None Seen); RBC,URINE 0-5 /HPF (0-5); SQUAMOUS EPITHELIAL CELL,UR NONE SEEN (<= Few); WBC,URINE 0-3 /HPF (0-3)
== END 2023-11-17 23:59 | disposition home or self-care (01) ==
LOC: LAB 08:00
PROVIDERS: ATTEND Urology
DX: R31.9 Hematuria, unspecified (principal)
CPT/HCPCS: 81001; 87086

== ENCOUNTER 2024-01-10 06:20 | Day surgery (SDC) | payer MEDICARE, OTHER ==
[2024-01-10] MEDS ORDERED: ceFAZolin 2 GM VIAL ONE (06:24)
[2024-01-10] MEDS: LACTATED RINGERS 1,000 ML IV ONE ×2 (06:27→08:05)
[2024-01-10] MEDS ORDERED: LIDOCAINE 2% URO-JET 5 ML SYRINGE UR ONE (07:07)
--- NOTE | 2024-01-10 07:17 | ANESTHESIA ---
Pre-Anesthesia VS, & Labs - Diagnosis bladder stones - Procedure cystolithopexy, possible laser Vital Signs: Temp Pulse Resp BP Pulse Ox O2 Flow Rate 36.1 C L 77 9 L 148/95 H 97 01/10/24 06:28 01/10/24 06:28 01/10/24 06:28 01/10/24 06:28 01/10/24 06:28 Height: 6 ft 3 in Weight (kg): 86.5 kg Body Mass Index: 23.8 BMI Classification: Normal - NPO >8 hours Home Medications and Allergies Home Medications: Ambulatory Orders Butalb/Acetam/Caff 50/325/40 [Fioricet] 1 each PO Q4-6H PRN 01/03/24 Tamsulosin [Flomax] 0.4 mg PO DAILY 01/03/24 Butalb/Acetam/Caff 50/325/40 [Fioricet] 1 each PO Q4-6H PRN 01/03/24 Tamsulosin [Flomax] 0.4 mg PO DAILY 01/03/24 Allergies/Adverse Reactions: Allergies Allergy/AdvReac Type Severity Reaction Status Date / Time No Known Drug Allergies Allergy Verified 07/24/22 22:10 Anes History & Medical History - Anesthetic History Anesthesia Complications: reports: Post-Operative Nausea/Vomiting - Medical History Cardiovascular: reports: None Pulmonary: reports: None Gastrointestinal: reports: None Urinary: reports: Kidney stones, Other Neuro: reports: Other Musculoskeletal: reports: None Endocrine/Autoimmune: reports: None Blood Disorders: reports: None Skin: reports: None Smoking Status: Never smoker - Surgical History General: reports: Cholecystectomy, Colonoscopy Urologic: reports: Kidney stents Gynecologic: Exam General: Alert, Oriented x3 Dental: WNL Mouth Opening: Greater than 4 Fingerbreadths Neck Mobility: Normal Mallampati classification: III Thyromental Distance: 4-6 cm Respiratory: Lungs clear Cardiovascular: Regular rate Plan Anesthesia Type: General Consent for Procedure(s) Verified and Reviewed: Yes Code Status: Attempt Resuscitation ASA classification: 2-Mild systemic disease Is this case an emergency?: No
[2024-01-10] MEDS ORDERED: LIDOCAINE-PF 2% 10 ML AMP SUBQ ONE (07:24)
[2024-01-10] MEDS ORDERED: PROPOFOL 200 MG/20 ML VIAL IVP ONE (07:24)
[2024-01-10] MEDS ORDERED: MIDAZOLAM 2 MG/2 ML VIAL ONE (07:24)
[2024-01-10] MEDS ORDERED: fentaNYL 100 MCG/2 ML VIAL ONE (07:25)
[2024-01-10] MEDS ORDERED: SCOPOLAMINE PATCH TOP ONE (07:30)
[2024-01-10] MEDS ORDERED: diphenhydrAMINE INJ 50 MG/ML VIAL ONE (07:47)
[2024-01-10] MEDS ORDERED: ONDANSETRON 4 MG/2 ML VIAL ONE (07:47)
[2024-01-10] MEDS ORDERED: DEXAMETHASONE 4 MG/ML VIAL ONE (07:47)
[2024-01-10] MEDS ORDERED: METOCLOPRAMIDE 10 MG/2 ML VIAL ONE (07:47)
[2024-01-10] MEDS ORDERED: ONDANSETRON 4 MG/2 ML VIAL IVP PRN ×2 (08:13→08:20)
[2024-01-10] MEDS ORDERED: HYDROcod/ACETAM 5/325 MG TABLET PO PRN (08:13)
--- NOTE | 2024-01-10 08:19 | Discharge Plan ---
Discharge Plan Problem Reviewed?: Yes Disposition: Home, Self Care Condition: Good Prescriptions: Docusate Sodium 100Mg Capsule [Colace 100Mg Capsule] 100 mg PO DAILY #7 cap Tamsulosin [Flomax] 0.8 mg PO DAILY #180 cap HYDROcod/ACETAM 5/325 [[place] 5/325] 1 tab PO Q4H PRN #5 tablet PRN Reason: Pain Diet: Regular Activity Restrictions: No Restrictions Shower Restrictions: No Driving Restrictions: No Additional Instructions or Follow Up instructions: You will be contacted for follow-up in 1 years time No Smoking: If you smoke, Please STOP! Call for help.
[2024-01-10] MEDS ORDERED: ATROPINE ABBOJECT 1 MG/10 ML SYRINGE IVP PRN (08:20)
[2024-01-10] MEDS ORDERED: fentaNYL 100 MCG/2 ML VIAL IVP PRN (08:20)
[2024-01-10] MEDS ORDERED: NALOXONE 0.4 MG/ML VIAL IVP PRN (08:20)
[2024-01-10] MEDS ORDERED: MORPHINE 2 MG/ML CARPUJECT IVP PRN (08:20)
[2024-01-10] MEDS ORDERED: HYDROmorphone 0.5 MG/0.5 ML SYRINGE IVP PRN (08:20)
[2024-01-10] MEDS ORDERED: METOCLOPRAMIDE 10 MG/2 ML VIAL IVP PRN (08:20)
[2024-01-10] MEDS ORDERED: ePHEDrine 50 MG/ML VIAL IVP PRN (08:20)
--- NOTE | 2024-01-10 08:21 | OPERATIVE REPORT ---
Operative Report - General Procedure Date: 01/10/24 Planned Procedure: Cystolitholapaxy less than 2 cm Pre-Op Diagnosis: Bladder stone Procedure Performed: Cystolitholapaxy less than 2 cm Post Op Diagnosis: Bladder stone - Procedure Note Primary Surgeon: Fabien Anesthesia Provider: MADDISON Rubio Anesthesia Technique: General LMA Pathology: bladder stone Findings: 9mm bladder stone Complications: none - Other Other Information/Narrative: After informed sent was obtained the patient was brought to the OR and laid the supine position. The patient was anesthetized per anesthesia protocols and prepped draped in usual sterile fashion in the dorsolithotomy position. A formal timeout was performed confirming the patient, procedure and laterality. A 22 [place] scope was advanced easily into urinary bladder. He was noted to have bilateral lateral lobe hypertrophy no median lobe of his prostate. His bladder mucosa was normal. He had a 9 mm bladder stone. This was evacuated out through the cystoscope. We emptied his bladder a Uro-Jet was placed, and this concluded the procedure. There were no complications The patient will follow-up in 1 years time
[2024-01-10 08:35] VITALS: BP 134/79; O2SAT 98
[2024-01-10] MEDS: LIDOCAINE 2% URO-JET 5 ML SYRINGE UR ONE (08:59)
[2024-01-10] MEDS ORDERED: LACTATED RINGERS 1,000 ML IV SCH (09:00)
--- NOTE | 2024-01-10 10:36 | ANESTHESIA POST OP EVALUATION ---
Anesthesia Post Eval - Post Anesthesia Eval Vitals: Last Vital Signs Temp 36.7 C 01/10/24 08:19 Pulse 68 01/10/24 08:34 Resp 15 01/10/24 08:34 BP 134/79 H 01/10/24 08:34 Pulse Ox 98 01/10/24 08:34 O2 Flow Rate CV Function Including HR & BP: Stable Pain Control: Satisfactory Nausea & Vomiting: Negative Mental Status: Baseline Respiratory Status: Airway Patent Hydration Status: Satisfactory Anesthesia Complications: None
== END 2024-01-10 06:21 | disposition home or self-care (01) ==
LOC: SDS 06:20
PROVIDERS: ATTEND Urology
DX: N21.0 Calculus in bladder (principal); Z85.46 Personal history of malignant neoplasm of prostate
CPT/HCPCS: 52317; 82365; C1758; J1200; J2765; J3490; J7120

== ENCOUNTER 2024-05-18 09:06 | Day surgery (SDC) | payer MEDICARE, OTHER ==
[2024-05-18] MEDS: PROPARACAINE 0.5% OPHTH DROPS 15 ML ONE (09:30)
[2024-05-18] MEDS: KETOROLAC TROMETHAMINE 0.5% OPHTH DROPS 5 ML ONE (09:30)
[2024-05-18] MEDS: PHENYLEPHRINE 2.5% OPHTH 2 ML DROPS ONE (09:32)
[2024-05-18] MEDS: CYCLOPENTOLATE 1% OPHTH DROPS 2 ML ONE (09:32)
[2024-05-18] MEDS: LACTATED RINGERS 1,000 ML IV ONE ×2 (09:40→11:55)
--- NOTE | 2024-05-18 10:55 | ANESTHESIA ---
Pre-Anesthesia VS, & Labs - Diagnosis right cataract - Procedure right cataract extraction with IOL Vital Signs: Temp Pulse Resp BP Pulse Ox O2 Flow Rate 36.2 C L 67 14 137/86 H 100 05/18/24 09:17 05/18/24 09:17 05/18/24 09:17 05/18/24 09:17 05/18/24 09:17 Height: 6 ft 3 in Weight (kg): 87.7 kg Body Mass Index: 24.1 BMI Classification: Normal - NPO >8 hours Home Medications and Allergies Tamsulosin [Flomax] 1.6 mg PO DAILY 03/21/24 Allergies/Adverse Reactions: Allergies Allergy/AdvReac Type Severity Reaction Status Date / Time No Known Drug Allergies Allergy Verified 07/24/22 22:10 Anes History & Medical History - Anesthetic History Anesthesia Complications: reports: No previous complications - Medical History Cardiovascular: reports: Hypertension Pulmonary: reports: None Gastrointestinal: reports: None Urinary: reports: Other Neuro: reports: Other Musculoskeletal: reports: None Endocrine/Autoimmune: reports: None Blood Disorders: reports: None Skin: reports: None Smoking Status: Never smoker - Surgical History General: reports: Cholecystectomy, Colonoscopy Urologic: reports: Kidney stents Gynecologic: reports: Other Exam General: Alert, Oriented x3 Dental: WNL Mouth Opening: Greater than 4 Fingerbreadths Neck Mobility: Normal Mallampati classification: III Thyromental Distance: greater than 6 cm Respiratory: Lungs clear Cardiovascular: Regular rate Plan Anesthesia Type: MAC Consent for Procedure(s) Verified and Reviewed: Yes Code Status: Attempt Resuscitation ASA classification: 2-Mild systemic disease Is this case an emergency?: No
[2024-05-18] MEDS ORDERED: MIDAZOLAM 2 MG/2 ML VIAL ONE (11:14)
[2024-05-18] MEDS ORDERED: fentaNYL 100 MCG/2 ML VIAL ONE (11:14)
[2024-05-18] MEDS ORDERED: BRIMONIDINE 0.2% OPHTH DROPS 5 ML ONE (11:22)
[2024-05-18] MEDS ORDERED: BSS/LIDOCAINE/EPINEPHRINE 1 ML VIAL ONE (11:22)
[2024-05-18] MEDS ORDERED: TIMOLOL 0.5% OPHTH DROPS ONE (11:22)
[2024-05-18] MEDS ORDERED: TRIAMCIN/MOXIFLOX OPHTHALMIC 0.6 ML VIAL IO ONE (11:22)
[2024-05-18] MEDS: BRIMONIDINE 0.2% OPHTH DROPS 5 ML OPTH ONE (11:27)
[2024-05-18] MEDS: EPINEPHrine 1 MG/ML AMP IR ONE (11:27)
[2024-05-18] MEDS: TIMOLOL 0.5% OPHTH DROPS OPTH ONE (11:27)
[2024-05-18] MEDS: TRIAMCIN/MOXIFLOX OPHTHALMIC 0.6 ML VIAL IO ONE (11:28)
[2024-05-18] MEDS: VANCOMYCIN OPHTH (TOPICAL) 10 MG/ML SYRINGE TOP ONE (11:28)
[2024-05-18] MEDS: PROPARACAINE 0.5% OPHTH DROPS 15 ML EACHEYE ONE (11:28)
[2024-05-18] MEDS: BSS/LIDOCAINE/EPINEPHRINE 1 ML SYRINGE IO ONE (11:28)
--- NOTE | 2024-05-18 11:57 | OPERATIVE REPORT ---
Operative Report - Other Other Information/Narrative: Date of Surgery: 05/18/24 Preop Dx: Visually significant cataract right eye. This was the first cataract surgery. Postop Dx: Same Procedure: Phacoemulsification with posterior chamber intraocular lens implant right eye Surgeon: Dr. Pancho Eldridge Anesthesia: Monitored anesthesia care Complications: None Operative Indications: This is a 68-year-old M with progressive vision loss in the right eye due to 1-2+ nuclear sclerotic, 3+ cortical, and 1+ posterior subcapsular cataract. Best corrected visual acuity was 20/40 with glare to 20/200 vision in the right eye. Indications for surgery were: - Overall decrease in vision - Difficulty seeing words on a computer screen - Difficulty reading - Difficulty seeing words, closed captions, or game scores on TV - Difficulty seeing street signs - Difficulty driving in low light or at night - Difficulty driving at night because of headlights from other vehicles - Difficulty with glare or bright lights in any situation - Decreased acuity with firearms The patient was consented at length concerning the risks and benefits of cataract surgery after which the patient expressed a desire to proceed with surgery. Operative Procedure: The patient was taken into OR#3 and placed under monitored anesthesia care. A surgical time-out was conducted confirming correct patient, correct procedure, and correct surgical site. The patient was given topical anesthesia and then prepped and draped in the usual sterile fashion. The eye was entered at the 6 and 3 oclock positions. Intracameral Shugarcaine was injected into the anterior chamber followed by a dispersive viscoelastic. A continuous-tear curvilinear capsulorhexis was performed. The nucleus was hydrodissected and phacoemulsified. The cortex was evacuated using automated infusion and aspiration. A cohesive viscoelastic was injected into the capsular bag and a 20.5 diopter intraocular lens was inserted into the bag. Infusion and aspiration were used to evacuate the viscoelastic materials from the eye. The wounds were hydrated and the eye inflated to physiologic pressure using balanced salt solution. Approximately 0.25ml of a mixture of triamcinolone and moxifloxacin was injected trans-sclerally into the vitreous in the inferot emporal quadrant using a 30 gauge cannula. An additional 0.25ml of a mixture of triamcinolone and moxifloxacin was injected subconjunctivally in the superior quadrant for infection and inflammation prophylaxis. Wound integrity was checked with Weck-Lluvia sponges. The patient was taken from the operating room in good condition and given post-op instructions.
[2024-05-18 12:36] VITALS: BP 126/70; O2SAT 99
--- NOTE | 2024-05-18 14:01 | ANESTHESIA POST OP EVALUATION ---
Anesthesia Post Eval - Post Anesthesia Eval Vitals: Last Vital Signs Temp 36.8 C 05/18/24 12:18 Pulse 64 05/18/24 12:18 Resp 14 05/18/24 12:18 BP 126/70 05/18/24 12:18 Pulse Ox 99 05/18/24 12:18 O2 Flow Rate CV Function Including HR & BP: Stable Pain Control: Satisfactory Nausea & Vomiting: Negative Mental Status: Baseline Respiratory Status: Airway Patent Hydration Status: Satisfactory Anesthesia Complications: None
== END 2024-05-18 09:07 | disposition home or self-care (01) ==
LOC: SDS 09:06
PROVIDERS: ATTEND Ophthalmology
DX: H25.811 Combined forms of age-related cataract, right eye (principal); I10 Essential (primary) hypertension
CPT/HCPCS: 66984; A9270; J3490; J7120